=== PATIENT | male | born 1980 | race Caucasian/White ===

== ENCOUNTER 2019-07-16 13:07 | Observation (INO) | payer OTHER, SELFPAY ==
[2019-07-16 13:08] VITALS: BMI 56.1
--- NOTE | 2019-07-16 13:15 | W.ED.CHESTPA ---
HPI - Chest Pain General: Chief Complaint: Chest Pain Stated Complaint: CP, SOB, LEG PAIN Time Seen by Provider: 07/16/19 13:11 History of Present Illness: HPI narrative: 38-year-old male presents with complaint of chest pain. Complains of a generalized chest pain he has had this for several days up to a week he states is been continuous he denies any cough or productive cough he denies any fever. He complains of generalized aches and pains throughout his body and increased urination especially during the day. He does admit to having a history of sleep apnea but denies any known history of diabetes mellitus he does not smoke. He has not noticed anything that seems to exacerbate or relieve his chest pain symptoms. He initially alluded to having some kidney pain but when pressed on the matter he could not identify particular area that hurt just that he hurts all over and urinates a lot. Patient was admitted for an end STEMI November 04, 2015 however at that time he was found to have a hypertensive urgency and had a bump in his troponin he had some left ventricular hypertrophy he had a coronary angiogram that essentially showed some luminal irregularities but no significant stenosis there was no intervention done at that time. Associated symptoms: Deny abdominal pain, dyspnea, fever(s), nausea or vomiting Review of Systems Const: Denies: fever, chills, body aches, change in appetite, fatigue or malaise ENMT: Denies: throat pain, ear pain, nasal discharge or nasal congestion Card: Denies: chest pain, edema, shortness of breath on exertion or shortness of breath when lying down Resp: Denies: shortness of breath, productive cough or non-productive cough GI: Denies: abdominal pain, nausea, vomiting, vomiting blood, coffee grounds in vomit, diarrhea, constipation, bloating, blood in stool or black tarry stool : Denies: flank pain, painful urination, urinary frequency or urinary urgency Skin/Breast: Denies: rash or itching PFSH ED PFSH: Medical History (Updated 07/18/19 @ 10:07 by Josue Gresham DO) Diastolic dysfunction without heart failure GERD (gastroesophageal reflux disease) Hypertension Significant improvement with restart of his chronic medications Obesity Obstructive sleep apnea Refuses CPAP Surgical History (Updated 07/16/19 @ 17:43 by Daren Carlisle MD) History of cholecystectomy History of coronary angiogram Only mild luminal irregularities found, otherwise normal, October 2015 Family History (Updated 07/16/19 @ 17:44 by Daren Carlisle MD) Other Hypertension Social History (Updated 07/16/19 @ 17:43 by Daren Carlisle MD) Smoking and tobacco status: former smoker Alcohol intake: never Physical Exam Const: COMMON NORMALS: no apparent distress GENERAL APPEARANCE: cooperative and comfortable ORIENTATION/CONSCIOUSNESS: Yes awake, Yes oriented to person, Yes oriented to place and Yes oriented to time HENMT: COMMON NORMALS: normocephalic, head/scalp atraumatic, hearing grossly normal bilaterally, external ears normal, EAC's normal, TM's normal bilaterally, nasal mucous membranes and turbinates normal, moist oral mucous membranes and oropharynx normal HEAD & SCALP: normocephalic and atraumatic NOSE: nasal mucous membranes and turbinates normal EXTERNAL EAR: Yes external ears normal EXTERNAL AUDITORY CANAL: EAC's normal TYMPANIC MEMBRANE: TM's normal bilaterally Eye: COMMON NORMALS: PERRL, EOMs intact bilaterally, conjunctivae normal and no scleral icterus CONJUNCTIVA: Yes conjunctivae normal PUPIL: Yes PERRL Neck/C-Spine: COMMON NORMALS: full ROM, no lymphadenopathy, supple and no JVD Lymph: LYMPHATIC: no lymphadenopathy noted and no lymphedema noted Resp: COMMON NORMALS: normal respiratory effort, no retractions, no use of accessory muscles and clear to auscultation bilaterally AUSCULTATION: clear to auscultation bilaterally Cardio: COMMON NORMALS: no JVD, regular rate, regular rhythm and no murmurs RATE: regular rate RHYTHM: regular rhythm GI: COMMON NORMALS: soft to palpation and no hepatosplenomegaly AUSCULTATION: Yes normoactive bowel sounds PALPATION: Yes soft, No tender, No guarding and Yes no hepatosplenomegaly Extremity: COMMON NORMALS: normal to inspection, normal capillary refill, no clubbing, cyanosis or edema, no calf tenderness and no pedal edema Neuro: SENSORIUM/ORIENTATION: Yes oriented to person, Yes oriented to place and Yes oriented to time Skin: COMMON NORMALS: no rashes or lesions noted GENERAL SKIN EXAM: no rashes or lesions noted Course Vital Signs: Vital signs: Vital Signs Temperature 98.3 F 07/17/19 11:40 Pulse Rate 75 07/17/19 11:40 Respiratory Rate 20 H 04/08/20 16:00 Blood Pressure 171/99 07/17/19 11:40 Pulse Oximetry 95 07/17/19 11:40 MDM - Chest Pain MDM Narrative: Medical decision making narrative: Reviewed findings with the patient. Discussed Dr. Barahona given the for will have to go ahead and place him on observation for further evaluation and possible stress testing. Lab Data: Labs: Lab Results 07/16/19 07/16/19 07/16/19 Range/Units 13:45 13:45 13:45 WBC 10.3 H (4.0-10.0) 10^3/ uL RBC 5.86 H (4.1-5.3) 10^6/u L Hgb 16.6 (11.7-16.6) g/dL Hct 51.1 (42.0-52.0) % MCV 87.2 (80-94) fL MCH 28.3 (28.0-34.0) pg MCHC 32.5 (30.0-36.0) g/dL RDW 14.4 (12.1-15.1) % Plt Count 249 (130-400) 10^3/c mm MPV 12.1 H (7.4-10.4) fL Neut % (Auto) 73.1 % Lymph % (Auto) 17.3 % [place] % (Auto) 7.1 % Eos % (Auto) 1.5 % Baso % (Auto) 0.5 % Neut # (Auto) 7.5 (1.8-7.7) 10^3/u L Lymph # (Auto) 1.8 (0.8-4.8) 10^3/u L [place] # (Auto) 0.7 (0.2-0.9) 10^3/u L Eos # (Auto) 0.2 (0.0-0.8) 10^3/u L Baso # (Auto) 0.1 (0.0-0.1) 10^3/u L Nucleated RBC % (a uto) 0 % Nucleated RBCs # 0.0 /100WBC D-Dimer (0-0.59) ug/mIFE U Sodium 136 (136-145) mmol/L Potassium 4.3 (3.5-5.1) mmol/L Chloride 97 L (98-107) mmol/L Carbon Dioxide 27 (22-29) mmol/L Anion Gap 16.3 (5-19) BUN 18 (6-20) mg/dL Creatinine 1.3 H (0.7-1.2) mg/dL GFR Calculation 61.1 L (90-130) mL/min Glucose 102 (65-115) mg/dL Calculated Osmolal ity 279 L (285-295) mOsm/k g Calcium 9.4 (8.5-10.5) mg/dL Total Bilirubin 0.7 (0.15-1.2) mg/dL AST 23 (0-40) U/L ALT 18 (0-41) U/L Alkaline Phosphata se 54 (40-130) IU/L Troponin T Baselin e 56 H (0-15) ng/mL Troponin T 120 Min [place] (0-15) ng/mL Delta Troponin T (0-10) ABS# Total Protein 7.2 (6.6-8.7) g/dL Albumin 4.0 (3.5-5.2) g/dL Globulin 3.2 (1.3-4.6) g/dL Lipase 27 (13-60) U/L TSH 1.83 (0.27-4.20) uIU/ mL 07/16/19 07/16/19 Range/Units 13:45 15:46 WBC (4.0-10.0) 10^3/ uL RBC (4.1-5.3) 10^6/u L Hgb (11.7-16.6) g/dL Hct (42.0-52.0) % MCV (80-94) fL MCH (28.0-34.0) pg MCHC (30.0-36.0) g/dL RDW (12.1-15.1) % Plt Count (130-400) 10^3/c mm MPV (7.4-10.4) fL Neut % (Auto) % Lymph % (Auto) % [place] % (Auto) % Eos % (Auto) % Baso % (Auto) % Neut # (Auto) (1.8-7.7) 10^3/u L Lymph # (Auto) (0.8-4.8) 10^3/u L [place] # (Auto) (0.2-0.9) 10^3/u L Eos # (Auto) (0.0-0.8) 10^3/u L Baso # (Auto) (0.0-0.1) 10^3/u L Nucleated RBC % (a uto) % Nucleated RBCs # /100WBC D-Dimer 0.58 (0-0.59) ug/mIFE U Sodium (136-145) mmol/L Potassium (3.5-5.1) mmol/L Chloride (98-107) mmol/L Carbon Dioxide (22-29) mmol/L Anion Gap (5-19) BUN (6-20) mg/dL Creatinine (0.7-1.2) mg/dL GFR Calculation (90-130) mL/min Glucose (65-115) mg/dL Calculated Osmolal ity (285-295) mOsm/k g Calcium (8.5-10.5) mg/dL Total Bilirubin (0.15-1.2) mg/dL AST (0-40) U/L ALT (0-41) U/L Alkaline Phosphata se (40-130) IU/L Troponin T Baselin e (0-15) ng/mL Troponin T 120 Min [place] 60.21 H (0-15) ng/mL Delta Troponin T 4.21 (0-10) ABS# Total Protein (6.6-8.7) g/dL Albumin (3.5-5.2) g/dL Globulin (1.3-4.6) g/dL Lipase (13-60) U/L TSH (0.27-4.20) uIU/ mL Discharge Plan Discharge Patient Disposition: Admitted As Inpatient Admit Provider: Daren Carlisle Clinical Impression: Chest pain, Hypertension, Elevated troponin, Lower extremity edema Condition: Stable Discharge Orders: Discharge Order (Routine); Ordered 07/17/19 Ordered By: Daren Carlisle Discharge Diet: Cardiac Discharge Activity: Increase activity as tolerated Interventions: ED Discharge Assessment Last Done: 07/16/19 20:01 Discharge Date/Time: 07/16/19 20:12 Coding Level of Care Code 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
[2019-07-16 13:16] VITALS: BP 201/146; PULSE 88; RESP 18; TEMP 37.2; O2SAT 97
--- NOTE | 2019-07-16 13:16 | ECG_ITS ---
Measurements Intervals [place] Rate: 84 P: 28 IA: 163 QRS: -1 QRSD: 88 T: 181 QT: 408 QTc: 483 SINUS RHYTHM LEFT VENTRICULAR HYPERTROPHY AND ST-T CHANGE [VOLTAGE CRITERIA PLUS ST/T ABN ABNORMALITY] INTERPRETATION BASED ON A DEFAULT AGE OF 40 YEARS Compared to ECG 01/21/2017 06:13:00 Left ventricular hypertrophy now present ST (T wave) deviation still present Electronically Signed On 07-17-2019 17:58:32 CDT by Gali Solorio M.D. [id number]
--- NOTE | 2019-07-16 13:16 | XR_ITS ---
WS: [id number] CHEST XRAY TECHNIQUE: Portable chest. CLINICAL INFORMATION: dyspnea/cough COMPARISON: None. FINDINGS: Heart: Cardiomegaly. Lungs: No acute pulmonary infiltrates. No focal pneumonia. Bones: Normal visualized bony structures. XR/XR chest 1V portable [id number] IMPRESSION: Cardiomegaly. No acute pulmonary infiltrates.
--- NOTE | 2019-07-16 13:19 | PC.NURSE ---
NOT TAKEN BLOOD PRESSURE MEDICATION FOR ABOUT MONTH UNABLE TO AFFORD IT
[2019-07-16 14:00] LABS: Basophils # 0.1 10^3/uL (0.0-0.1); Basophils % 0.5 %; Eosinophils # 0.2 10^3/uL (0.0-0.8); Eosinophils % 1.5 %; Hematocrit 51.1 % (42.0-52.0); Hemoglobin 16.6 g/dL (11.7-16.6); Lymphocytes # 1.8 10^3/uL (0.8-4.8); Lymphocytes % 17.3 %; Mean Corpuscular HGB Conc 32.5 g/dL (30.0-36.0); Mean Corpuscular Hemoglobin 28.3 pg (28.0-34.0); Mean Corpuscular Volume 87.2 fL (80-94); Mean Platelet Volume 12.1 fL (7.4-10.4); Monocytes # 0.7 10^3/uL (0.2-0.9); Monocytes % 7.1 %; Neutrophils # 7.5 10^3/uL (1.8-7.7); Neutrophils % 73.1 %; Nucleated Red Blood Cells % 0 %; Platelet Count 249 10^3/cmm (130-400); Red Blood Count 5.86 10^6/uL (4.1-5.3); Red Cell Distribution Width 14.4 % (12.1-15.1); White Blood Count 10.3 10^3/uL (4.0-10.0)
[2019-07-16 14:12] LABS: Alanine Aminotransferase 18 U/L (0-41); Alkaline Phosphatase 54 IU/L (40-130); Anion Gap 16.3 (5-19); Aspartate Amino Transferase 23 U/L (0-40); Blood Urea Nitrogen 18 mg/dL (6-20); Calcium 9.4 mg/dL (8.5-10.5); Carbon Dioxide 27 mmol/L (22-29); Chloride 97 mmol/L (98-107); Globulin 3.2 g/dL (1.3-4.6); Glomerular Filtration Rate 61.1 mL/min (90-130); Glucose 102 mg/dL (65-115); Lipase 27 U/L (13-60); Osmolality Calculated 279 mOsm/kg (285-295); Potassium 4.3 mmol/L (3.5-5.1); Sodium 136 mmol/L (136-145); Total Bilirubin 0.7 mg/dL (0.15-1.2); Total Protein 7.2 g/dL (6.6-8.7)
[2019-07-16 14:13] LABS: Troponin(5th) Baseline 56 ng/mL (0-15)
--- NOTE | 2019-07-16 15:13 | PC.NURSE ---
Patient resting at this time. No needs voiced
--- NOTE | 2019-07-16 15:16 | ECG_ITS ---
Measurements Intervals [place] Rate: 73 P: 22 GA: 168 QRS: -18 QRSD: 86 T: 163 QT: 426 QTc: 472 SINUS RHYTHM LEFT VENTRICULAR HYPERTROPHY AND ST-T CHANGE [VOLTAGE CRITERIA PLUS ST/T AB ABNORMALITY] Compared to ECG 01/21/2017 06:13:00 Left ventricular hypertrophy now present ST (T wave) deviation still present Electronically Signed On 07-17-2019 18:05:41 CDT by Gali Solorio M.D. [email or web address]
[2019-07-16 16:36] LABS: Troponin 5 2HR 60.21 ng/mL (0-15); Troponin 5 2HR Delta 4.21 ABS# (0-10)
[2019-07-16] MEDS: enoxaparin 80 mg/0.8 mL Syringe 150 MG SUBCUT (17:07)
[2019-07-16 17:09] VITALS: RESP 15
[2019-07-16 17:09] LABS: D Dimer 0.58 ug/mIFEU (0-0.59)
[2019-07-16] MEDS: morphine 4 mg/mL SDV 1 mL 2 MG IVP (17:09)
[2019-07-16] MEDS: nitroglycerin 1 gm/inch oint Pkt 1.5 INCH TOPICAL (17:09)
--- NOTE | 2019-07-16 17:36 | P.HP_ITS ---
Providers/Chief Complaint Primary Care Provider: Estelle Kendrick DO Chief Complaint: CP, SOB, LEG PAIN History of Present Illness Eli Michael is a 38 year old male who presents to the hospital with complaints of chest discomfort. He reports it is been going on 2 weeks, off and on but some days it will last all day. He states it is sharp and usually in his right chest. He denies any pleuritic component to it. He has been coughing in the last several days. He denies any fever. He admits to being a little short of breath. He reports the cough is nonproductive. He denies any ill contacts at home and has had no recent travel. He reports no vomiting or diarrhea. He relates his blood pressure is been high for quite some time but higher since he ran out of meds medicines 1 month ago. He relates that he lost his job and did not make it to the physician to get these refilled. He reports some leg swelling since that time that has gradually been increasing. He believes the leg swelling may have been even going on prior to this and it makes his legs hurt a little bit. He reports no hemoptysis. He reports he will occasionally have a stool with a slight amount of blood. Review of Systems General: Reports: 10 or more systems reviewed and unremarkable except in HPI and below Const: Denies: fever or chills Eyes: Denies: blurry vision ENMT: Denies: throat pain Card: Reports: chest pain Resp: Reports: shortness of breath and non-productive cough GI: Denies: abdominal pain : Denies: flank pain Musc: Denies: neck pain Skin/Breast: Denies: rash Neuro: Denies: headache Psych: Denies: anxiety or depression Endo: Denies: excessive urination Jomar/Lymph: Denies: easy bruising All/Imm: Denies: hives Medications/Allergies Home Medications Medication Instructions Recorded Confirmed Last Taken Type furosemide 40 mg PO DAILY 07/16/19 07/16/19 Unknown History hydrochlorothiazide 25 mg PO DAILY 07/16/19 07/16/19 Unknown History hydrocodone-acetaminophen 1 tab PO DAILY 07/16/19 07/16/19 Unknown History lisinopril See Rx Instructions .ROUTE .COMPLEX 07/16/19 07/16/19 Unknown History potassium chloride 20 meq PO BID 07/16/19 07/16/19 Unknown History Allergies Allergy/AdvReac Type Severity Reaction Status Date / Time aspirin Allergy Unknown Verified 07/16/19 13:15 PFSH Acute PFSH: Medical History (Updated 07/16/19 @ 17:50 by Daren Carlisle MD) Diastolic dysfunction without heart failure GERD (gastroesophageal reflux disease) Hypertension Obesity Obstructive sleep apnea Refuses CPAP Surgical History (Updated 07/16/19 @ 17:43 by Daren Carlisle MD) History of cholecystectomy History of coronary angiogram Only mild luminal irregularities found, otherwise normal, October 2015 Family History (Updated 07/16/19 @ 17:43 by Daren Carlisle MD) Other Hypertension Social History (Updated 07/16/19 @ 17:43 by Daren Carlisle MD) Smoking and tobacco status: former smoker Alcohol intake: never Substance/Drug Use: never Vitals/I&O/Wt Last Vital Signs Temp 99.0 F 07/16/19 13:16 Pulse 88 07/16/19 13:16 Resp 15 07/16/19 17:09 BP 201/146 07/16/19 13:16 Pulse Ox 97 07/16/19 13:16 Weight last 48 hrs Weight 172.365 kg Physical Exam Narrative: EXAM NARRATIVE: General exam demonstrates an obese white male, with mild tachypnea. Occasional cough. He has a mask on HEENT: Pupils equally round. Oropharynx clear. Neck is supple no lymphadenopathy or thyromegaly, obese Cardiovascular heart sounds distant. No murmur Lungs clear bilaterally. Lung sounds distant Abdomen is soft obese nontender with positive bowel sounds was deferred Extremities 1+ bilateral edema. No cyanosis or clubbing Skin no rash Neuro no focal deficits Data : 07/16/19 13:45 07/16/19 13:45 Other data: Troponin elevated at 56, with 120-minute level of 60 D-dimer normal at 0.58 Liver function tests normal Chest x-ray with cardiomegaly, no infiltrates Previous echocardiogram September 2016 demonstrated 3/4 diastolic dysfunction, LVH, EF 55% EKG demonstrates LVH pattern, borderline left axis deviation. This is unchanged from previous EKGs A&P Assessment and plan (1) Chest discomfort: This is very atypical. It has been occurring for 2 weeks and can last days at a time. Troponin is elevated, but appears to be chronically secondary to his LVH/diastolic dysfunction. I believe his chest discomfort at this time is secondary to his acute diastolic heart failure, marked hypertension. Check echocardiogram D-dimer is noted to be negative Serial troponins Treatment of hypertension as below. At this point no nuclear stress test is planned unless other concerns arise. Telemetry Check TSH Status: Acute (2) Elevated troponin: See above. Will trend Status: Acute (3) Acute diastolic heart failure: Lasix 40 mg IV x1 Check echocardiogram Reinstitute many of his blood pressure medications Status: Acute (4) Cough: Temperature is slightly elevated. He has a nonproductive cough and shortness of breath. Chest x-ray is difficult to interpret secondary to obesity. We have Covid 19 in the community. Although still low likelihood as he is being observed in the hospital I will keep him on covert precautions, Covid 19 test ordered. Status: Acute (5) Lower extremity edema: Likely secondary to heart failure. Check venous duplex Status: Acute (6) Hypertension: Marked hypertension, with concerns of possible hypertensive urgency on arrival to ER. Currently denies any chest discomfort and reports no current shortness of breath. Nitroglycerin ointment Lisinopril 10 mg daily first dose now Initiate metoprolol 25 mg twice daily Lasix 40 mg IV x1 Hydralazine as needed Status: Acute Additional A&P Information Obstructive sleep apnea, refuses CPAP/BiPAP GERD. Will institute Protonix Morbidly obese, counseled Lovenox for DVT prophylaxis Full code Attestations Medical Necessity Statement*: Will need less than 2 midnight stay, for evaluation of marked hypertension and treatment thereof. Time Spent in Patient Care: Greater than 35 minutes Coding Level of Care Code Acute Farm Management Agent for oRxanna Pickett Diagnoses Chest discomfort R07.89 Elevated troponin R79.89 Acute diastolic heart failure I50.31 Cough R05 Lower extremity edema R60.0 Hypertension I10
--- NOTE | 2019-07-16 18:29 | PC.NURSE ---
Called to give report. Was told to wait 15-20 minutes so the nurse coming on could take report.
[2019-07-16 19:06] LABS: Influenza A by IFA Negative (Negative); Influenza B by IFA Negative (Negative)
--- NOTE | 2019-07-16 19:16 | ECG_ITS ---
Measurements Intervals [place] Rate: 72 P: 31 [place]: 177 QRS: 13 QRSD: 82 T: 168 QT: 421 QTc: 461 SINUS RHYTHM WITH OCCASIONAL VENTRICULAR PREMATURE COMPLEXES LEFT VENTRICULAR HYPERTROPHY AND ST-T CHANGE [VOLTAGE CRITERIA PLUS ST/T ABNORMALITY] Compared to ECG 01/21/2017 06:13:00 Ventricular premature complex(es) now present Left ventricular hypertrophy now present ST (T wave) deviation still present Electronically Signed On 07-17-2019 18:09:53 CDT by Gali Solorio M.D. [email or web address]
[2019-07-16 20:01] VITALS: BP 182/119; PULSE 79; RESP 20; O2SAT 98
[2019-07-16 20:21] LABS: Troponin 5 6HR 60.62 ng/mL (0-15); Troponin 5 6HR Delta 4.62 ng/L (0-12)
[2019-07-16] MEDS: metoprolol tartrate 25 mg Tablet PO (20:49)
[2019-07-16] MEDS: pantoprazole DR 40 mg Tablet PO (20:49)
[2019-07-16] MEDS: FUROsemide 10 mg/mL SDV 4mL 40 MG IVP (20:49)
[2019-07-16] MEDS: nitroglycerin 1 gm/inch oint Pkt 1 INCH TOPICAL (20:50)
[2019-07-16] MEDS: acetaminophen 325 mg Tablet 650 MG PO (20:58)
[2019-07-16 21:11] LABS: Thyroid Stimulating Hormone 1.83 uIU/mL (0.27-4.20)
[2019-07-16] MEDS: hyDRALAzine 20 mg/mL INJ 1 mL 10 MG IVP (21:16)
[2019-07-16 21:20] VITALS: BMI 55.1
[2019-07-16 22:15] VITALS: BP 160/90
[2019-07-16 23:48] LABS: Add On to Lab Order(s) Added
[2019-07-17] VITALS: BP 167/70; PULSE 74; RESP 20; TEMP 36.8; O2SAT 91
[2019-07-17] MEDS: acetaminophen 325 mg Tablet 650 MG PO (03:15)
[2019-07-17] MEDS: nitroglycerin 1 gm/inch oint Pkt 1 INCH TOPICAL (03:15)
[2019-07-17 04:00] VITALS: BP 131/74; PULSE 70; RESP 20; TEMP 36.7; O2SAT 90
[2019-07-17 04:09] LABS: Basophils % 0.3 %; Eosinophils # 0.1 10^3/uL (0.0-0.8); Hematocrit 47.7 % (42.0-52.0); Hemoglobin 15.5 g/dL (11.7-16.6); Lymphocytes # 1.6 10^3/uL (0.8-4.8); Mean Corpuscular HGB Conc 32.5 g/dL (30.0-36.0); Mean Corpuscular Hemoglobin 28.7 pg (28.0-34.0); Mean Corpuscular Volume 88.2 fL (80-94); Mean Platelet Volume 11.9 fL (7.4-10.4); Monocytes # 1.1 10^3/uL (0.2-0.9); Monocytes % 8.2 %; Neutrophils # 10.3 10^3/uL (1.8-7.7); Neutrophils % 78.1 %; Nucleated Red Blood Cells % 0 %; Platelet Count 266 10^3/cmm (130-400); Red Blood Count 5.41 10^6/uL (4.1-5.3); Red Cell Distribution Width 14.7 % (12.1-15.1); White Blood Count 13.2 10^3/uL (4.0-10.0)
[2019-07-17 04:24] LABS: Anion Gap 13.9 (5-19); Blood Urea Nitrogen 19 mg/dL (6-20); Calcium 9.5 mg/dL (8.5-10.5); Carbon Dioxide 29 mmol/L (22-29); Chloride 99 mmol/L (98-107); Glomerular Filtration Rate 61.1 mL/min (90-130); Glucose 126 mg/dL (65-115); Osmolality Calculated 284 mOsm/kg (285-295); Potassium 3.9 mmol/L (3.5-5.1); Sodium 138 mmol/L (136-145)
--- NOTE | 2019-07-17 07:00 | USCV_ITS ---
Eil Michael Age: 38 Gender: M : 1980 Exam Date: 07/17/2019 07:12 Ordering Phys: Daren Carlisle MD Technologist: Vivi Mohr Exam Location: [facility] – [place] Indication: PROCEDURES: Venous duplex imaging was performed in bilateral lower extremities. The following venous structures were evaluated: common femoral vein, profunda vein, proximal portion of the greater saphenous vein, superficial femoral vein, and the popliteal vein. In addition, the posterior tibial and peroneal trunk were evaluated. Serial compression, augmentation maneuvers, and spectral Doppler flow evaluation were performed. FINDINGS: Normal 2-D Doppler and augmentation and compressibility throughout the lower extremity venous structures. Additional imaging through the proximal calf veins also reveals no thrombus. Limited evaluation of the greater saphenous vein is patent with no thrombus.. CONCLUSIONS No evidence of right lower extremity DVT. No evidence of left lower extremity DVT. Ryan Wellington MD (Electronically Signed) Final Date: 18 July 2019 13:13 S
--- NOTE | 2019-07-17 07:00 | USCV_ITS ---
Eli Michael Age: 38 Gender: M : 1980 Exam Date: 07/17/2019 07:03 Ordering Phys: Daren Carlisle MD Technologist: Vivi Mohr Exam Location: [facility] – [place] Indication: BP: / HR: 70 Rhythm: Sinus Technical Quality: Poor because of body habitus MEASUREMENTS (Male / Female) Normal Values 2D ECHO LVOT Diameter 2.1 cm LV Ejection Fraction MOD 2C 10.4 % LV Ejection Fraction 2C AL 8.3 % LA Width 3.3 cm LA Height 3.8 cm RA Width 2.9 cm RA Height 3.8 cm DOPPLER AV Peak Velocity 194.0 cm/s LVOT Peak Velocity 102.0 cm/s AV Area Cont Eq vti 1.8 cm squared AV Area Cont Eq pk 1.8 cm squared MV Area PHT 4.0 cm squared Mitral E to A Ratio 1.1 MV E' Velocity 7.0 cm/s Mitral E to MV E' Ratio 9.4 Mitral E to LV E' Lateral Ratio 9.1 Mitral E to LV E' Septal Ratio 9.8 FINDINGS Left Ventricle The study is poor and limited due to the patient's body habitus. The ventricle is upper limit of normal in size. The left ventricular function is probably lower limit of normal. Wall motion disturbances and diastolic function cannot be determined. Right Ventricle Poorly seen Right Atrium The right atrium is normal in size. Left Atrium Poorly seen Mitral Valve Mitral valve not well visualized. Aortic Valve Aortic valve not well visualized. Tricuspid Valve Tricuspid valve not well visualized. Pulmonic Valve Pulmonic valve not well visualized. Pericardium Normal pericardium without effusion. Aorta Aorta not well visualized. CONCLUSIONS The study is poor and limited due to the patient's body habitus. The ventricle is upper limit of normal in size. The left ventricular function is probably lower limit of normal. Wall motion disturbances and diastolic function cannot be determined. Technically limited study. Dr. Sukhi Lovell MD (Electronically Signed) Final Date: 17 July 2019 12:47 S
[2019-07-17 08:00] VITALS: BP 171/99; PULSE 75; RESP 18; TEMP 36.8; O2SAT 95
[2019-07-17 10:00] VITALS: BMI 54.8
[2019-07-17] MEDS: FUROsemide 40 mg Tablet PO (10:25)
[2019-07-17] MEDS: pantoprazole DR 40 mg Tablet PO (10:27)
[2019-07-17] MEDS: lisinopril 10 mg Tablet PO (10:27)
[2019-07-17] MEDS: metoprolol tartrate 25 mg Tablet PO (10:27)
[2019-07-17] MEDS: isosorbide mononitrate ER 30 mg Tablet PO (10:28)
--- NOTE | 2019-07-17 11:11 | P.DS_ITS ---
Discharge Providers Date of Admission: 07/16/19 17:16 Date of Discharge: July 17, 2019 Attending Provider at Admission: Daren Carlisle MD Attending Provider at Discharge: Daren Carlisle MD Primary Care Provider: Estelle Kendrick DO Diagnoses at Discharge Discharge Diagnosis (1) Chest discomfort: Status: Acute Problem details: Resolved (2) Elevated troponin: Status: Acute Problem details: Chronically elevated (3) Acute diastolic heart failure: Status: Acute Problem details: Compensated (4) Cough: Status: Acute Problem details: Not significant today (5) Lower extremity edema: Status: Acute Problem details: Improved (6) Hypertension: Status: Acute Problem details: Significant improvement with restart of his chronic medications Reason for Visit Reason for Visit: Reason For Visit: CP, SOB, LEG PAIN Hospital Course Hospital Course: Eli presented to the department with chest discomfort. It been going on 2 weeks, sharp and intermittent but can last for days at a time. Denied any pleuritic quality to it. Has an occasional cough. Reported he ran out of his medicines a month ago for high blood pressure. He has known severe LVH. Troponin was found to be elevated in the emergency department. No significant delta was noted. Chest x-ray showed no infiltrate. D-dimer was negative. He was admitted to the hospital, diuresed, started on his home medications with the addition of nitrates and monitoring closely. While in the hospital he had no recurrent chest discomfort. He required no oxygen. He did not run a fever. White blood cell count was noted to be slightly elevated. Influenza tests were done, and Covid 19 done which was pending at time of discharge. Overall, it was thought his markedly elevated blood pressure on admission was secondary to him not taking his medicines as well as decompensation of diastolic heart failure causing some chest discomfort. He wi ll follow-up with cardiology, primary care provider. Covid 19 results will be called to him. He was told to continue self quarantine at home with mask. I discussed with him in the hospital the possibility of doing another sleep study, consideration of CPAP but he refused. Physical Exam Narrative: EXAM NARRATIVE: General exam no apparent distress Cardiovascular regular rate and rhythm without murmur Lungs clear Abdomen is soft obese nontender Extremities trace edema Discharge Data Data Completed and Pending: Completed Studies During Hospitalization Category Date Time Status XR chest 1V iban ble [id number] Stat Exams 07/16/19 13:16 Completed Pending at discharge Category Date Time Status CV echo complete* [id number] Routine Ultrasound 07/17/19 07:00 [place] [id number] Routin e Ultrasound 07/17/19 07:00 Taken Labs from last 24 hours 07/17/19 07/17/19 07/16/19 03:38 03:38 19:55 WBC 13.2 H RBC 5.41 H Hgb 15.5 Hct 47.7 MCV 88.2 MCH 28.7 MCHC 32.5 RDW 14.7 Plt Count 266 MPV 11.9 H Neut % (Auto) 78.1 Lymph % (Auto) 12.0 Cameron % (Auto) 8.2 Eos % (Auto) 1.0 Baso % (Auto) 0.3 Neut # (Auto) 10.3 H Lymph # (Auto) 1.6 Cameron # (Auto) 1.1 H Eos # (Auto) 0.1 Baso # (Auto) 0.0 Nucleated RBC % (a uto) 0 Nucleated RBCs # 0.0 D-Dimer Sodium 138 Potassium 3.9 Chloride 99 Carbon Dioxide 29 Anion Gap 13.9 BUN 19 Creatinine 1.3 H GFR Calculation 61.1 L Glucose 126 H Calculated Osmolal ity 284 L Calcium 9.5 Total Bilirubin AST ALT Alkaline Phosphata se Troponin I 6 Hour 60.62 H Troponin I Hi Sens Del 4.62 Troponin T Baselin e Troponin T 120 Min ho-chunk Delta Troponin T Total Protein Albumin Globulin Lipase TSH Influenza Type A A g Influenza Type B A g 07/16/19 07/16/19 07/16/19 17:38 15:46 13:45 WBC RBC Hgb Hct MCV MCH MCHC RDW Plt Count MPV Neut % (Auto) Lymph % (Auto) Cameron % (Auto) Eos % (Auto) Baso % (Auto) Neut # (Auto) Lymph # (Auto) Cameron # (Auto) Eos # (Auto) Baso # (Auto) Nucleated RBC % (a uto) Nucleated RBCs # D-Dimer 0.58 Sodium Potassium Chloride Carbon Dioxide Anion Gap BUN Creatinine GFR Calculation Glucose Calculated Osmolal ity Calcium Total Bilirubin AST ALT Alkaline Phosphata se Troponin I 6 Hour Troponin I Hi Sens Del Troponin T Baselin e Troponin T 120 Min ho-chunk 60.21 H Delta Troponin T 4.21 Total Protein Albumin Globulin Lipase TSH Influenza Type A A g Negative Influenza Type B A g Negative 07/16/19 07/16/19 07/16/19 13:45 13:45 13:45 WBC 10.3 H RBC 5.86 H Hgb 16.6 Hct 51.1 MCV 87.2 MCH 28.3 MCHC 32.5 RDW 14.4 Plt Count 249 MPV 12.1 H Neut % (Auto) 73.1 Lymph % (Auto) 17.3 Cameron % (Auto) 7.1 Eos % (Auto) 1.5 Baso % (Auto) 0.5 Neut # (Auto) 7.5 Lymph # (Auto) 1.8 Cameron # (Auto) 0.7 Eos # (Auto) 0.2 Baso # (Auto) 0.1 Nucleated RBC % (a uto) 0 Nucleated RBCs # 0.0 D-Dimer Sodium 136 Potassium 4.3 Chloride 97 L Carbon Dioxide 27 Anion Gap 16.3 BUN 18 Creatinine 1.3 H GFR Calculation 61.1 L Glucose 102 Calculated Osmolal ity 279 L Calcium 9.4 Total Bilirubin 0.7 AST 23 ALT 18 Alkaline Phosphata se 54 Troponin I 6 Hour Troponin I Hi Sens Del Troponin T Baselin e 56 H Troponin T 120 Min ho-chunk Delta Troponin T Total Protein 7.2 Albumin 4.0 Globulin 3.2 Lipase 27 TSH 1.83 Influenza Type A A g Influenza Type B A g Vitals: Last Vital Signs Temp 98.3 F 07/17/19 08:00 Pulse 75 07/17/19 08:00 Resp 18 07/17/19 08:00 BP 171/99 07/17/19 08:00 Pulse Ox 95 07/17/19 08:00 Discharge Plan Discharge Patient Disposition: Home, Self-Care Condition: Stable Prescriptions: New metoprolol tartrate 25 mg Tablet 25 mg PO BID Qty: 60 RF: 0 isosorbide mononitrate 30 mg Tablet Extended Release 24 Hr 30 mg PO DAILY Qty: 30 RF: 0 pantoprazole [Protonix] 40 mg tablet,delayed release (DR/EC) 40 mg PO DAILY Qty: 30 RF: 0 potassium chloride 20 mEq tablet extended release 20 meq PO DAILY Qty: 30 RF: 0 lisinopril 10 mg Tablet 10 mg PO DAILY Qty: 30 RF: 0 Continued furosemide 40 mg tablet 40 mg PO DAILY Qty: 30 RF: 0 hydrochlorothiazide 25 mg tablet 25 mg PO DAILY Qty: 30 RF: 0 Discontinued hydrocodone-acetaminophen 5-325 mg tablet 1 tab PO DAILY RF: 0 lisinopril 20 mg tablet See Rx Instructions .ROUTE .COMPLEX RF: 0 potassium chloride 20 mEq tablet,ER particles/crystals 20 meq PO BID RF: 0 Referrals: Estelle Kendrick DO [Primary Care Provider] - 4-7 days Joanna Pickett MD [Physician] - 2 weeks Discharge Diet: Cardiac Discharge Activity: Increase activity as tolerated Activity Restrictions/Additional Instructions: Take all medicine as prescribed Keep follow-up with primary care provider, cardiology Note that your Covid 19 test that was done at the emergency department was pending at time of discharge and you will need to continue quarantine at home, with mask. You will be called with your result. Discharge Attestations Time Spent in Discharge Care*: greater than 30 min Quality Metrics Clinical Quality Measures During this hospital stay, did patient experience: None Coding Level of Care Code Acute Etcher Apprentice for Chg Fwd Diagnoses Chest discomfort R07.89 Elevated troponin R79.89 Acute diastolic heart failure I50.31 Cough R05 Lower extremity edema R60.0 Hypertension I10
[2019-07-17 11:40] VITALS: BP 171/99; PULSE 75; RESP 18; TEMP 36.8; O2SAT 95
[2019-07-17 12:00] VITALS: RESP 20
--- NOTE | 2019-07-17 13:34 | PC.NURSE ---
patients iv was removed intact, covered with 2x2 and coban. patient tolerated well. patient educated on chf, chest pain, edema, htn, new medications, activity, daily weighing, lifestyle changes, what to do if symptoms get worse, also he was given the chf stoplight. patient verbally acknowledged all teachings. no questions asked. Patient awaiting ride.
[2019-07-17 16:00] VITALS: RESP 20
== END 2019-07-17 17:44 | disposition home or self-care (01) ==
LOC: ER 14:40 → MEDSURG 18:25
PROVIDERS: Admitting Provider Internal Medicine; Emergency Provider Family Medicine; Family Provider Family Medicine; PCP Family Medicine; Visit Provider Internal Medicine
DX: R07.89 Other chest pain (principal); R79.89 Other specified abnormal findings of blood chemistry; I11.0 Hypertensive heart disease with heart failure; I50.31 Acute diastolic (congestive) heart failure; Z11.59 Encounter for screening for other viral diseases; R05 Cough; R60.0 Localized edema; G47.33 Obstructive sleep apnea (adult) (pediatric); K21.9 Gastro-esophageal reflux disease without esophagitis; E66.01 Morbid (severe) obesity due to excess calories; Z68.43 Body mass index [BMI] 50.0-59.9, adult; Z82.49 Family history of ischemic heart disease and other diseases of the circulatory system
CPT/HCPCS: 12345; 36415; 71045; 80048; 80053; 83690; 84443; 84484; 85025; 85378; 87635; 87804; 93005; 93306; 93970; 96372; 96374; 96375; 99283; 99285; G0378; J0360; J1650; J1940; J2270

== ENCOUNTER → 2019-10-30 17:59 | Outpatient (BNVA) | payer SELFPAY | PROVIDERS: Family Provider Family Medicine; Visit Provider Emergency Medicine | DX: I10 Essential (primary) hypertension (principal); R60.0 Localized edema; I51.89 Other ill-defined heart diseases; E66.9 Obesity, unspecified; G47.33 Obstructive sleep apnea (adult) (pediatric); K21.9 Gastro-esophageal reflux disease without esophagitis | CPT/HCPCS: 80048; 83880 ==

== ENCOUNTER 2019-11-02 13:59 | Inpatient (IN) | payer SELFPAY ==
[2019-11-02] VITALS (15 sets, daily range): BP systolic 153–246; BP diastolic 98–149; PULSE 72–96; RESP 10–25; TEMP 36.4–36.9; O2SAT 86–98; BMI 57.7
--- NOTE | 2019-11-02 14:24 | ECG_ITS ---
[facility] Test Date: 2019-11-02 Pat Name: Eli Michael Department: Room: Gender: Male Data Capture Specialist: : 1980 Requested By: Josue Chowdhury Order Number: [id number] Smooth MD: Joanna Pickett M.D. Measurements Intervals [place] Rate: 85 P: 27 ID: [id number] QRS: -1 QRSD: 84 T: 170 QT: 404 QTc: 482 Interpretive Statements SINUS RHYTHM ST DEVIATION AND MARKED T-WAVE ABNORMALITY, CONSIDER ANTEROLATERAL ISCHEMIA Compared to ECG 07/16/2019 21:55:48 T-wave abnormality now present Possible ischemia now present Ventricular premature complex(es) no longer present Left ventricular hypertrophy no longer present ST (T wave) deviation no longer present Electronically Signed On 11-03-2019 12:44:06 CDT by Joanna Pickett M.D. [id number]
--- NOTE | 2019-11-02 14:25 | XRR_ITS ---
PROCEDURE INFORMATION: Exam: XR Chest, 1 View Exam date and time: 11/02/2019 2:50 PM Age: 39 years old Clinical indication: Cough and dyspnea; Additional info: Dyspnea/cough TECHNIQUE: Imaging protocol: XR of the chest Views: 1 view. COMPARISON: CR Chest 1 [place] [id number] 12/30/2015 1:27 PM FINDINGS: Lungs: Unremarkable. No consolidation. Pleural space: Unremarkable. No pleural effusion. No pneumothorax. Heart/Mediastinum: Unremarkable. No cardiomegaly. Bones/joints: Unremarkable. No interval changes are seen compared to prior XR/XR chest 1V portable [id number] IMPRESSION: No acute findings.
--- NOTE | 2019-11-02 14:34 | PC.NURSE ---
Pt provided with urinal with instructions for urine sample.
--- NOTE | 2019-11-02 14:54 | PC.NURSE ---
Pt states he is unable to void at this time.
[2019-11-02 14:56] LABS: Basophils # 0.1 10^3/uL (0.0-0.1); Basophils % 0.5 %; Eosinophils # 0.2 10^3/uL (0.0-0.8); Eosinophils % 2.3 %; Hematocrit 44.2 % (42.0-52.0); Hemoglobin 14.2 g/dL (11.7-16.6); Lymphocytes # 1.7 10^3/uL (0.8-4.8); Lymphocytes % 17.4 %; Mean Corpuscular HGB Conc 32.1 g/dL (30.0-36.0); Mean Corpuscular Volume 90.4 fL (80-94); Mean Platelet Volume 12.3 fL (7.4-10.4); Monocytes # 0.7 10^3/uL (0.2-0.9); Monocytes % 6.7 %; Neutrophils # 7.04 10^3/uL (1.8-7.7); Neutrophils % 72.7 %; Nucleated Red Blood Cells % 0 %; Platelet Count 197 10^3/cmm (130-400); Red Blood Count 4.89 10^6/uL (4.1-5.3); Red Cell Distribution Width 14.2 % (12.1-15.1); White Blood Count 9.7 10^3/uL (4.0-10.0)
--- NOTE | 2019-11-02 14:57 | W.ED.GENADLT ---
HPI - General Adult General: Chief complaint: General Medical Stated complaint: ACID REFLUX; ELEVATED BP Time Seen by Provider: 11/02/19 14:06 History of Present Illness: HPI narrative: 39-year-old morbidly obese male presents emergency room with complaint of chest discomfort he states it is reflux he also has elevated blood pressure. He has chest discomfort radiated feels like his acid reflux is been going on for last 4 to 5 days he denies being having a cough. Is a little bit short of breath at times he states is not unusual for him he is not diaphoretic there is no radiation of the pain he has really noticed anything that exacerbates or relieves his discomfort we note his oxygen sat on room air was 88 to 89% when he first came to the room. Associated symptoms: Deny chest pain, dyspnea, malaise, nausea, rash or vomiting Review of Systems Const: Denies: fever(s), chills, body aches, change in appetite, fatigue or malaise ENMT: Denies: throat pain, ear or mastoid pain, nasal discharge or nasal congestion Card: Denies: chest pain, edema, dyspnea on exertion or orthopnea Resp: Denies: dyspnea, productive cough or non-productive cough GI: Denies: abdominal pain, nausea, vomiting, hematemesis, coffee ground emesis, diarrhea, constipation, bloating, hematochezia or melena : Denies: flank pain, dysuria, urinary frequency or urinary urgency Skin/Breast: Denies: rash or pruritus [facility] PFSH: Medical History (Updated 11/03/19 @ 08:55 by Michaela Cid MD) CAD (coronary artery disease) Diastolic dysfunction without heart failure GERD (gastroesophageal reflux disease) Hypertension Obesity Obstructive sleep apnea Surgical History History of cholecystectomy History of coronary angiogram Only mild luminal irregularities found, otherwise normal, October 2015 Family History Other Hypertension Social History Smoking and tobacco status: former smoker Alcohol intake: current Alcohol intake frequency: holidays/special occasions only Household members: family Housing: House Physical Exam Const: COMMON NORMALS: no acute distress GENERAL APPEARANCE: cooperative and comfortable ORIENTATION/CONSCIOUSNESS: Yes awake, Yes oriented to person, Yes oriented to place and Yes oriented to time HENMT: COMMON NORMALS: normocephalic, atraumatic, hearing grossly normal bilaterally, external ears normal, EAC's normal, TM's normal bilaterally, Normal nasal mucous membranes and turbinates present, moist oral mucous membranes and oropharynx normal HEAD & SCALP: normocephalic and atraumatic NOSE: Normal nasal mucous membranes and turbinates present EXTERNAL EAR: Yes external ears normal EXTERNAL AUDITORY CANAL: EAC's normal TYMPANIC MEMBRANE: TM's normal bilaterally Eye: COMMON NORMALS: Equal, round and reactive pupils present, EOMs intact bilaterally, conjunctivae normal and no scleral icterus CONJUNCTIVA: Yes conjunctivae normal PUPIL: Yes Equal, round and reactive pupils present Neck/C-Spine: COMMON NORMALS: full ROM, no lymphadenopathy, supple and no JVD Lymph: LYMPHATIC: no lymphadenopathy noted and no lymphedema noted Resp: COMMON NORMALS: normal respiratory effort, No retractions, No use of accessory muscles and clear to auscultation bilaterally AUSCULTATION: clear to auscultation bilaterally Cardio: COMMON NORMALS: no JVD, regular rate, regular rhythm and No murmurs present (Cardio) RATE: regular rate RHYTHM: regular rhythm GI: COMMON NORMALS: Soft to palpation and No hepatosplenomegaly present AUSCULTATION: Yes normoactive bowel sounds PALPATION: Yes Soft to palpation, No Tenderness to palpation present (GI), No Guarding due to palpation present (GI) and Yes No hepatosplenomegaly present OTHER: Patient has been super morbidly obese Extremity: COMMON NORMALS: normal to inspection, capillary refill normal, no clubbing, cyanosis or edema, no calf tenderness and no pedal edema Neuro: SENSORIUM/ORIENTATION: Yes oriented to person, Yes oriented to place and Yes oriented to time Skin: COMMON NORMALS: no rashes or lesions noted GENERAL SKIN EXAM: no rashes or lesions noted Course Vital Signs: Vital signs: Vital Signs Temperature 98.8 F 11/05/19 03:16 Pulse Rate 75 11/05/19 03:16 Respiratory Rate 18 11/05/19 03:16 Blood Pressure 148/88 11/05/19 03:28 Pulse Oximetry 90 11/05/19 03:16 MDM - General Adult MDM Narrative: Medical decision making narrative: Patient has significant coronary artery disease risk and also has elevated troponin will admit for rule out and further testing. Lab Data: Attestation: I reviewed the patient's lab results. Labs: Lab Results 11/02/19 11/02/19 11/02/19 Range/Units 14:38 14:38 14:38 WBC 9.7 (4.0-10.0) 10^3/ uL RBC 4.89 (4.1-5.3) 10^6/u L Hgb 14.2 (11.7-16.6) g/dL Hct 44.2 (42.0-52.0) % MCV 90.4 (80-94) fL MCH 29.0 (28.0-34.0) pg MCHC 32.1 (30.0-36.0) g/dL RDW 14.2 (12.1-15.1) % Plt Count 197 (130-400) 10^3/c mm MPV 12.3 H (7.4-10.4) fL Neut % (Auto) 72.7 % Lymph % (Auto) 17.4 % Cascade % (Auto) 6.7 % Eos % (Auto) 2.3 % Baso % (Auto) 0.5 % Neut # (Auto) 7.04 (1.8-7.7) 10^3/u L Lymph # (Auto) 1.7 (0.8-4.8) 10^3/u L Cascade # (Auto) 0.7 (0.2-0.9) 10^3/u L Eos # (Auto) 0.2 (0.0-0.8) 10^3/u L Baso # (Auto) 0.1 (0.0-0.1) 10^3/u L Nucleated RBC % (a uto) 0 % Nucleated RBCs # 0.0 /100WBC Sodium 141 (136-145) mmol/L Potassium 4.2 (3.5-5.1) mmol/L Chloride 102 (98-107) mmol/L Carbon Dioxide 31 H (22-29) mmol/L Anion Gap 12.2 (5-19) BUN 15 (6-20) mg/dL Creatinine 1.2 (0.7-1.2) mg/dL GFR Calculation 66.7 L (90-130) mL/min Glucose 98 (65-115) mg/dL Calculated Osmolal ity 288 (285-295) mOsm/k g Calcium 9.5 (8.5-10.5) mg/dL Total Bilirubin 0.8 (0.15-1.2) mg/dL AST 30 (0-40) U/L ALT 40 (0-41) U/L Alkaline Phosphata se 53 (40-130) IU/L Troponin T Baselin e 66 H (0-15) ng/L Total Protein 6.7 (6.6-8.7) g/dL Albumin 3.9 (3.5-5.2) g/dL Globulin 2.8 (1.3-4.6) g/dL Discharge Plan Discharge Patient Disposition: Placed in Observation Admit Provider: Michaela Cid Discharge Date/Time: 11/02/19 17:50 Coding Level of Care Code ED Correctional Manager for Joelg Fwd Exam Comprehensive
[2019-11-02] MEDS: hyDRALAzine 20 mg/mL INJ 1 mL IVP (15:06)
[2019-11-02] MEDS: amlodipine 10 mg Tablet PO (15:06)
[2019-11-02 15:26] LABS: Alanine Aminotransferase 40 U/L (0-41); Albumin Level 3.9 g/dL (3.5-5.2); Alkaline Phosphatase 53 IU/L (40-130); Aspartate Amino Transferase 30 U/L (0-40); Blood Urea Nitrogen 15 mg/dL (6-20); Calcium 9.5 mg/dL (8.5-10.5); Carbon Dioxide 31 mmol/L (22-29); Chloride 102 mmol/L (98-107); Globulin 2.8 g/dL (1.3-4.6); Glomerular Filtration Rate 66.7 mL/min (90-130); Glucose 98 mg/dL (65-115); Osmolality Calculated 288 mOsm/kg (285-295); Sodium 141 mmol/L (136-145); Total Bilirubin 0.8 mg/dL (0.15-1.2); Total Protein 6.7 g/dL (6.6-8.7)
[2019-11-02 15:49] LABS: Troponin(5th) Baseline 66 ng/L (0-15)
[2019-11-02 15:50] LABS: Anion Gap 12.2 (5-19); Potassium 4.2 mmol/L (3.5-5.1)
[2019-11-02] MEDS: cloNIDine 0.1 mg Tablet PO (16:42)
--- NOTE | 2019-11-02 16:43 | CTR_ITS ---
PROCEDURE INFORMATION: Exam: CT Angiography Chest With Contrast Exam date and time: 11/02/2019 4:59 PM Age: 39 years old Clinical indication: Dyspnea; Patient HX: C/O chest discomfort w HTN and dec o2 sats TECHNIQUE: Imaging protocol: Computed tomographic angiography of the chest with intravenous contrast. 3D rendering: MIP and/or 3D reconstructed images were created by the technologist. Radiation optimization: All CT scans at this facility use at least one of these dose optimization techniques: automated exposure control; mA and/or kV adjustment per patient size (includes targeted exams where dose is matched to clinical indication); or iterative reconstruction. Contrast material: OMNI 350; Contrast volume: 95 ml; Contrast route: INTRAVENOUS (IV); COMPARISON: CR XR chest 1V portable [id number] 11/02/2019 2:34 PM RADIATION DOSE METRICS: Total DLP (mGy-cm): 611.03 FINDINGS: Pulmonary arteries: Normal. No pulmonary emboli. Aorta: Unremarkable. No aortic aneurysm. No aortic dissection. Lungs: Calcified granuloma in the left lower lobe. No focal consolidation. Mild scattered atelectasis. Pleural space: Unremarkable. No pneumothorax. No pleural effusion. Heart: Unremarkable. No cardiomegaly. No pericardial effusion. Lymph nodes: Subcentimeter mediastinal lymph nodes are most likely reactive. Kidneys and ureters: Likely benign cyst in the superior left kidney, Hounsfield units less than 20. No follow-up is recommended. Bones/joints: Mild scoliosis. No compression fracture. Soft tissues: Unremarkable. CT/CT angio chest PE protcl [id number] IMPRESSION: 1. No evidence for pulmonary embolus or other acute finding. COMMENTS: Consistent with the [place] [employer]'s Incidental Findings Committee white paper (J Am Conchis Radiol 2018): Any incidental renal lesion less than 1.0 cm or classified as too small to characterize, or any incidental cystic renal lesion characterized as simple-appearing, is likely benign. No follow-up imaging is recommended for these lesions per consensus recommendations based on imaging criteria. Radiation Dose CTDIVOL = (mGy): DLP = 611.03 (mGy-cm)
[2019-11-02] MEDS: metoprolol tartrate 50 mg Tablet PO (17:02)
[2019-11-02] MEDS: nitroglycerin 1 gm/inch oint Pkt 0.5 INCH TOPICAL (17:02)
[2019-11-02] MEDS: enoxaparin 120 mg/0.8 mL Syringe SUBCUT (17:03)
[2019-11-02 17:10] LABS: Add Urine Microscopic? YES; Bilirubin Urine Neg (NEGATIVE); Blood Urine Neg (Negative); Glucose Urine UA Norm (Normal); Ketones Urine Negative (Negative); Leukocyte Esterase Urine Negative (Negative); Nitrate Urine Negative (Negative); Protein Urine 2+ (Negative); Urine Appearance Clear (CLEAR); Urine Color Yellow (Yellow); Urobilinogen Urine Norm (Negative); pH Urine 6 (5-7)
[2019-11-02 17:18] LABS: Bacteria Urine TRACE; Mucus Urine TRACE; Squamous Epithelial Cell Urine 0-4 (0-5); WBC Urine 0-4 /hpf (0-5)
[2019-11-02 17:19] LABS: Add Urine Culture? No
[2019-11-02 17:21] LABS: Troponin 5 2HR 69.49 ng/L (0-15); Troponin 5 2HR Delta 3.49 ABS# (0-10)
--- NOTE | 2019-11-02 17:25 | PC.NURSE ---
Attempted to call report, nurse unavailable at this time. Pt to CT.
[2019-11-02] MEDS: iohexol 350 mg/mL 100 mL Btl IV (17:37)
--- NOTE | 2019-11-02 18:30 | PC.NURSE ---
received from er via stretcher at 1810.report received.pt is alert and awake.sr on monitor.bp 185/110.pt states he has a headache 09/17..and has since nitroglycerin in ambulance.oriented to room environment.instructed to notify staff for any increase in headache,cp,sob...or for any concerns at all.pt verb understanding of instructions.
--- NOTE | 2019-11-02 19:49 | PC.NURSE ---
Rounding: Patient resting in bed. Patient is alert and oriented and denies any pain or needs at this time. Will continue to monitor.
--- NOTE | 2019-11-02 20:04 | PM.HP ---
Providers/Chief Complaint Admitting Physician: Michaela Cid MD Primary Care Provider: Estelle Kendrick DO Chief Complaint: ACID REFLUX; ELEVATED BP History of Present Illness Eli Michael is a 39 year old male with PMHx noted below presents from home for evaluation of chest pressure, shortness of breath particularly with exertion, increasing lower extremity swelling for the past 4 to 5 days. He initially attributed his symptoms to reflux but chest pressure has been constant, non-radiating and nothing seems to be making this better. He has also had a headache. He is not oxygen dependent at baseline. Has a known history of obstructive sleep apnea but is unable to afford CPAP as he is uninsured. He reports having run out of his meds several weeks ago as he has been unable to afford them as well. He is visibly dyspneic during my assessment on the floor, additional collateral information obtained from review of medical record. He had previously been admitted to our facility in July 2019 with similar symptoms at which time he was diuresed due to noted acute CHF exacerbation. He had been tested for COVID-19 during that visit as well which was negative. He was quite hypertensive on initial assessment in the ER with noted systolic blood pressure greater than 200 and diastolic blood pressure greater than 110. He received multiple antihypertensive medications including clonidine, hydralazine, metoprolol, amlodipine. He also received a dose of therapeutic Lovenox. Work-up so far shows normal white count, normal hemoglobin, normal electrolytes, normal renal function, elevated troponins with no significant delta. CTA of the chest is negative for PE or any other acute findings. Due to noted hypertensive urgency, clinical indication of decompensated CHF patient will be admitted to [facility] for further care. Review of Systems Const: Reports: change in appetite (decreased appetite); Denies: fever(s) or chills Eyes: Denies: change in vision ENMT: Reports: dry mouth Card: Reports: chest pain, edema (bilateral LEs), swelling of feet/ankles and dyspnea on exertion; Denies: lightheadedness, syncope or pre-syncope Resp: Reports: dyspnea; Denies: productive cough or non-productive cough GI: Reports: nausea and heartburn; Denies: abdominal pain, vomiting, hematemesis or hematochezia : Denies: dysuria, urinary frequency or hematuria Musc: Reports: other (bilateral knee pain with weight-bearing); Denies: back pain Skin/Breast: Denies: rash Neuro: Denies: numbness in extremities or weakness in extremities Psych: Denies: anxiety Medications/Allergies Home Medications Medication Instructions Recorded Confirmed Last Taken Type furosemide 40 mg tablet 40 mg PO DAILY #30 tab 10/30/19 11/02/19 Unknown Rx hydrochlorothiazide 25 mg tablet 25 mg PO DAILY #30 tab 10/30/19 11/02/19 Unknown Rx isosorbide mononitrate 30 mg 30 mg PO DAILY #30 tab 10/30/19 11/02/19 Unknown Rx tablet,extended release 24 hr lisinopril 10 mg tablet 10 mg PO DAILY #30 tab 10/30/19 11/02/19 Unknown Rx metoprolol tartrate 25 mg tablet 25 mg PO BID #60 tab 10/30/19 11/02/19 Unknown Rx pantoprazole 40 mg tablet,delayed 40 mg PO DAILY #30 tab 10/30/19 11/02/19 Unknown Rx release potassium chloride 20 mEq 20 meq PO DAILY #30 tab 10/30/19 11/02/19 Unknown Rx tablet,extended release Allergies Allergy/AdvReac Type Severity Reaction Status Date / Time aspirin Allergy Unknown Verified 10/30/19 16:18 PFSH Acute PFSH: Medical History (Updated 11/02/19 @ 20:28 by Michaela Cid MD) CAD (coronary artery disease) Diastolic dysfunction without heart failure GERD (gastroesophageal reflux disease) Hypertension Obesity Obstructive sleep apnea Surgical History History of cholecystectomy History of coronary angiogram Only mild luminal irregularities found, otherwise normal, October 2015 Family History Other Hypertension Social History Smoking and tobacco status: former smoker Alcohol intake: current Alcohol intake frequency: holidays/special occasions only Substance/Drug Use: never Household members: family Housing: House Vitals/I&O/Wt Last Vital Signs Temp 98.5 F 11/02/19 14:00 Pulse 72 11/02/19 18:30 Resp 18 11/02/19 18:30 BP 153/106 11/02/19 18:30 Pulse Ox 92 11/02/19 18:30 Weight last 48 hrs Weight 172.365 kg Physical Exam Const: COMMON NORMALS: no acute distress, patient oriented x3 and alert GENERAL APPEARANCE: cooperative and comfortable NUTRITIONAL APPEARANCE: obese morbidly obese ORIENTATION/CONSCIOUSNESS: Yes awake HENMT: COMMON NORMALS: normocephalic, atraumatic, hearing grossly normal bilaterally and moist oral mucous membranes HEAD & SCALP: normocephalic and atraumatic Eye: COMMON NORMALS: Equal, round and reactive pupils present, EOMs intact bilaterally and conjunctivae normal CONJUNCTIVA: Yes conjunctivae normal PUPIL: Yes Equal, round and reactive pupils present Neck/C-Spine: COMMON NORMALS: full ROM GENERAL: Yes normal visual inspection and Yes trachea midline OTHER: -short, thick neck Resp: EFFORT & INSPECTION: Yes tachypneic OTHER: -auscultation quite limited by body habitus; equal air entry bilaterally, conversational dyspnea, on 2 L NC Cardio: COMMON NORMALS: regular rate, regular rhythm, S1 normal heart sound present, S2 normal heart sound present and No murmurs present (Cardio) RATE: regular rate RHYTHM: regular rhythm HEART SOUNDS: S1 normal heart sound present and S2 normal heart sound present GI: COMMON NORMALS: Normal to inspection, nondistended, normoactive bowel sounds present, Soft to palpation and non-tender INSPECTION: Yes central obesity PALPATION: Yes Soft to palpation Extremity: COMMON NORMALS: normal to inspection and full ROM GENERAL: Yes edema (1-2+ pitting edema of bilateral LEs) Neuro: COMMON NORMALS: patient oriented x3, moves all extremities, no focal motor deficits and no sensory deficits noted Psych: COMMON NORMALS: mental status grossly normal, Normal thought process present, cooperative, normal affect and speech normal SPEECH: Yes normal speech THOUGHT PROCESS: Normal thought process present Skin: COMMON NORMALS: no rashes or lesions noted, no jaundice, no petechiae and no mottling GENERAL SKIN EXAM: no rashes or lesions noted Data : 11/02/19 14:38 11/02/19 14:38 A&P Assessment and plan (1) Hypertensive urgency: -Secondary to having run out of his medications several weeks ago, has been unable to afford these -Noted to be in hypertensive urgency with systolic blood pressure greater than 200 -So far has received amlodipine 10 mg p.o., 20 mg IV hydralazine, clonidine 0.1 mg, 50 mg of metoprolol p.o. and has 0.5 inch of Nitropaste. -Resume previous oral antihypertensive regimen -Hydralazine PRN -Close monitoring of vital signs -Hypertensive urgency is likely contributing to dyspnea, chest discomfort Status: Acute (2) Chest pain: -Likely related to hypertensive urgency -Troponins noted to be elevated though delta is non-significant -Had previous echo done in 07/28 which was a poor study with ejection fraction likely lower limit of normal -We will likely need stress testing though is quite dyspneic and with the weekend will be unable to get this done -CTA negative for PE -Recent TSH which was normal, check lipid panel and A1c -Telemetry monitoring Status: Acute Qualifiers: Chest pain type: unspecified Qualified Code(s): R07.9 - Chest pain, unspecified (3) GERD (gastroesophageal reflux disease): -resume PPI Status: Chronic Qualifiers: Esophagitis presence: esophagitis presence not specified Qualified Code(s): K21.9 - Gastro-esophageal reflux disease without esophagitis (4) Obstructive sleep apnea: -Some of his shortness of breath is likely secondary to SUSANA. Untreated SUSANA is also contributing to poorly controlled hypertension. -Has been unable to afford CPAP, will use CPAP nightly while here Status: Chronic (5) Obesity: -Morbidly obese with a BMI of 58 kg/m2 -Associated poorly controlled hypertension, obstructive sleep apnea Status: Chronic Qualifiers: Obesity type: due to excess calories Obesity classification: adult class 3 (BMI >= 40) Serious obesity comorbidity presence: with serious comorbidity Body mass index: BMI 50.0-59.9 Qualified Code(s): E66.01 - Morbid (severe) obesity due to excess calories; Z68.43 - Body mass index (BMI) 50.0-59.9, adult (6) Hypertension: -As noted above Status: Chronic Qualifiers: Hypertension type: essential hypertension Qualified Code(s): I10 - Essential (primary) hypertension (7) Elevated troponin: -Likely related to hypertensive urgency -Troponins noted to be elevated though delta is non-significant -Serial EKGs -Likely type II secondary to hypertensive urgency Status: Acute (8) Diastolic CHF: -Appears to be mildly clinically decompensated with noted conversational dyspnea, bilateral lower extremity edema -IV diuresis for now -monitor Is & Os, daily weights -Echo noted above Qualifiers: Heart failure chronicity: acute on chronic Qualified Code(s): I50.33 - Acute on chronic diastolic (congestive) heart failure Additional A&P Information -cardiac diet as tolerated -GI ppx with PPI -DVT ppx with lovenox -Dispo: home; uninsured and has been unable to afford his medications and CPAP, case management consult placed -Code status: FULL code Attestations Medical Necessity Statement*: Eli Michael's hospital stay will require greater than 2 midnights for management of hypertensive urgency, acute CHF exacerbation requiring close monitoring of hemodynamic status, IV diuresis. Time Spent in Patient Care: Greater than 35 minutes (>than 50% of time spent in counselling and/or direct pt care on unit). Coding Level of Care Code Acute Pediatric Orthodontist for Chg Fwd Diagnoses Hypertensive urgency I16.0 Chest pain R07.9 Chest pain type: unspecified GERD (gastroesophageal reflux disease) K21.9 Esophagitis presence: esophagitis presence not specified Obstructive sleep apnea G47.33 Obesity E66.01; Z68.43 Obesity type: due to excess calories Obesity classification: adult class 3 (BMI >= 40) Serious obesity comorbidity presence: with serious comorbidity Body mass index: BMI 50.0-59.9 Hypertension I10 Hypertension type: essential hypertension Elevated troponin R79.89 Diastolic CHF I50.33 Heart failure chronicity: acute on chronic
--- NOTE | 2019-11-02 20:24 | ECG_ITS ---
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 Measurements Intervals [place] Rate: 73 P: 35 VT: 172 QRS: -1 QRSD: 90 T: 185 QT: 434 QTc: 480 Interpretive Statements SINUS RHYTHM POSSIBLE LEFT ATRIAL ENLARGEMENT [-0.1mV P WAVE IN V1/V2] ST DEVIATION AND MODERATE T-WAVE ABNORMALITY, CONSIDER ANTEROLATERAL ISCHEMIA [-0.1+ mV T WAVE IN V3-V6] ST DEVIATION AND MODERATE T-WAVE ABNORMALITY, CONSIDER INFERIOR ISCHEMIA [-0.1+ mV T WAVE IN II/aVF] Compared to ECG 11/02/2019 14:28:02 No significant changes Electronically Signed On 11-03-2019 12:52:28 CDT by Joanna Pickett M.D. [id number]
[2019-11-02 20:38] LABS: Troponin 5 6HR 67.17 ng/L (0-15); Troponin 5 6HR Delta 1.17 ng/L (0-12)
[2019-11-02] MEDS: FUROsemide 10 mg/mL SDV 2mL 20 MG IVP (21:23)
[2019-11-02] MEDS: enoxaparin 40 mg/0.4 mL Syringe SUBCUT (21:23)
--- NOTE | 2019-11-02 21:30 | PC.NURSE ---
Patient given HIPPA password which he gave his to his family. PAtient refusing to wear a gown at this time.
[2019-11-02] MEDS: acetaminophen 325 mg Tablet 650 MG PO (21:51)
--- NOTE | 2019-11-02 22:58 | PC.NURSE ---
Patient incontinent into the floor and on himself why not all the urine is charted in mls.
[2019-11-03] VITALS (8 sets, daily range): BP systolic 130–194; BP diastolic 58–120; PULSE 65–78; RESP 16–32; TEMP 36.3–37.1; O2SAT 91–97; BMI 57.4
--- NOTE | 2019-11-03 00:26 | PC.NURSE ---
Offered to put patient on CPAP. Patient oxygen saturations drop while he sleeps despite wearing a nasal cannula. Patient states well it does that all the time. Will continue to monitor.
[2019-11-03 05:05] LABS: Basophils # 0.1 10^3/uL (0.0-0.1); Basophils % 0.4 %; Eosinophils # 0.2 10^3/uL (0.0-0.8); Eosinophils % 1.5 %; Hematocrit 46.5 % (42.0-52.0); Hemoglobin 14.3 g/dL (11.7-16.6); Lymphocytes # 1.7 10^3/uL (0.8-4.8); Lymphocytes % 13.3 %; Mean Corpuscular HGB Conc 30.8 g/dL (30.0-36.0); Mean Corpuscular Hemoglobin 28.7 pg (28.0-34.0); Mean Corpuscular Volume 93.2 fL (80-94); Mean Platelet Volume 12.5 fL (7.4-10.4); Monocytes # 0.9 10^3/uL (0.2-0.9); Neutrophils # 9.65 10^3/uL (1.8-7.7); Neutrophils % 77.3 %; Nucleated Red Blood Cells % 0 %; Platelet Count 114 10^3/cmm (130-400); Red Blood Count 4.99 10^6/uL (4.1-5.3); Red Cell Distribution Width 14.6 % (12.1-15.1); White Blood Count 12.5 10^3/uL (4.0-10.0)
--- NOTE | 2019-11-03 05:23 | PC.NURSE ---
End of shift: Patient has rested on and off this shift. Patient refused to wear his CPAP this evening. Patient did put a put a gown on later on into the shift. Patient vitals remain stable and patient is alert and oriented. Will continue to monitor.
[2019-11-03 05:59] LABS: Alanine Aminotransferase 34 U/L (0-41); Albumin Level 3.7 g/dL (3.5-5.2); Alkaline Phosphatase 53 IU/L (40-130); Anion Gap 10.7 (5-19); Aspartate Amino Transferase 26 U/L (0-40); Blood Urea Nitrogen 19 mg/dL (6-20); Carbon Dioxide 33 mmol/L (22-29); Chloride 99 mmol/L (98-107); Globulin 2.9 g/dL (1.3-4.6); Glomerular Filtration Rate 55.8 mL/min (90-130); Glucose 118 mg/dL (65-115); Osmolality Calculated 284 mOsm/kg (285-295); Potassium 4.7 mmol/L (3.5-5.1); Sodium 138 mmol/L (136-145); Total Bilirubin 0.4 mg/dL (0.15-1.2); Total Protein 6.6 g/dL (6.6-8.7)
[2019-11-03 06:37] LABS: Chol HDL Ratio 4.68 mg/dL (1.0-5.00); Cholesterol 117 mg/dL (0-200); HDL Cholesterol 25 mg/dL (60-100); LDL Cholesterol Calculated 71 mg/dL (50-129); LDL HDL Ratio 2.84 RATIO (0.00-3.22); Triglycerides 106 mg/dL (0-150)
[2019-11-03 06:52] LABS: Estmated Average Glucose 154
--- NOTE | 2019-11-03 08:48 | PM.PN ---
Subjective Subjective: Interval history: Had 1500 mL urine output overnight, some improvement in blood pressure control overnight, seems to be trending up again this morning. Tachypneic, on 2 L nasal cannula, heart rate regular and within normal limits, afebrile. Noted slight increase in creatinine to 1.4 today, A1c of 7.0, slight increase in leukocytosis with white count of 12.5. Feels better after taking a shower, BP on his return better but he is still hypertensive. Medications: Reviewed: Yes Medication Review Details: Active Medications Generic Name Dose Route Start Last Admin Trade Name Freq PRN Reason Stop Dose Admin Acetaminophen 650 mg 11/02/19 20:04 11/02/19 21:51 Tylenol PO 650 mg Q6H PRN Administration Mild/Mod Pain Or Temp >/= 101 Calcium Carbonate 500 mg 11/02/19 20:04 Tums PO Q4H PRN INDIGESTION Enoxaparin Sodium 40 mg 11/02/19 20:15 11/02/19 21:23 Lovenox SUBCUT 40 mg Q24H VENUS Administration Furosemide 20 mg 11/02/19 20:15 11/02/19 21:23 Lasix IVP 20 mg Q12H VENUS Administration Hydralazine HCl 10 mg 11/02/19 20:04 Apresoline IVP Q4H PRN elevated BP Hydrochlorothiazid e 25 mg 11/03/19 09:00 Hctz PO DAILY [facility] Isosorbide Mononit rate 30 mg 11/03/19 09:00 Imdur PO DAILY [facility] Lisinopril 10 mg 11/03/19 09:00 Prinivil PO DAILY [facility] Metoprolol Tartrat e 25 mg 11/03/19 09:00 Lopressor PO BID [facility] Morphine Sulfate 2 mg 11/02/19 20:04 Morphine IVP Q4H PRN SEVERE PAIN Ondansetron HCl 4 mg 11/02/19 20:04 Zofran IVP Q8H PRN vomiting, or N/V if npo Pantoprazole Sodiu m 40 mg 11/03/19 09:00 Protonix PO BID [facility] Potassium Chloride 20 meq 11/03/19 09:00 Klor-Con 10 PO DAILY [facility] aspirin Allergy (Verified 10/30/19 16:18) Unknown Vitals/I&O/Wt Last Vital Signs Temp 98.4 F 11/03/19 07:11 Pulse 73 11/03/19 07:11 Resp 29 H 11/03/19 07:11 BP 194/120 11/03/19 07:11 Pulse Ox 96 11/03/19 07:11 11/02/19 11/03/19 11/03/19 22:59 06:59 14:59 Intake Total 350 / 350 360 / 360 Output Total 850 / 850 650 / 1500 300 / 300 Balance -850 / -850 -300 / -1150 60 / 60 Weight last 48 hrs Weight 171.543 kg Weight 172.365 kg Physical Exam Const: COMMON NORMALS: no acute distress, patient oriented x3 and alert GENERAL APPEARANCE: cooperative and comfortable NUTRITIONAL APPEARANCE: obese morbidly obese ORIENTATION/CONSCIOUSNESS: Yes awake HENMT: COMMON NORMALS: normocephalic, atraumatic, hearing grossly normal bilaterally and moist oral mucous membranes HEAD & SCALP: normocephalic and atraumatic Eye: COMMON NORMALS: Equal, round and reactive pupils present, EOMs intact bilaterally and conjunctivae normal CONJUNCTIVA: Yes conjunctivae normal PUPIL: Yes Equal, round and reactive pupils present Neck/C-Spine: COMMON NORMALS: full ROM GENERAL: Yes normal visual inspection and Yes trachea midline OTHER: -short, thick neck Resp: EFFORT & INSPECTION: Yes tachypneic OTHER: -auscultation quite limited by body habitus; equal air entry bilaterally, conversational dyspnea, on 2 L NC Cardio: COMMON NORMALS: regular rate, regular rhythm, S1 normal heart sound present, S2 normal heart sound present and No murmurs present (Cardio) RATE: regular rate RHYTHM: regular rhythm HEART SOUNDS: S1 normal heart sound present and S2 normal heart sound present GI: COMMON NORMALS: Normal to inspection, nondistended, normoactive bowel sounds present, Soft to palpation and non-tender INSPECTION: Yes central obesity PALPATION: Yes Soft to palpation Extremity: COMMON NORMALS: normal to inspection and full ROM GENERAL: Yes edema (1-2+ pitting edema of bilateral LEs) Neuro: COMMON NORMALS: patient oriented x3, moves all extremities, no focal motor deficits and no sensory deficits noted SENSORIUM/ORIENTATION: Yes alert Psych: COMMON NORMALS: mental status grossly normal, Normal thought process present, cooperative, normal affect and speech normal SPEECH: Yes normal speech THOUGHT PROCESS: Normal thought process present Skin: COMMON NORMALS: no rashes or lesions noted, no jaundice, no petechiae and no mottling GENERAL SKIN EXAM: no rashes or lesions noted Data : 11/03/19 04:39 11/03/19 04:39 A&P Assessment and plan (1) Hypertensive urgency: -Secondary to having run out of his medications several weeks ago, has been unable to afford these -Noted to be in hypertensive urgency with systolic blood pressure greater than 200 -received multiple antihypertensives in ED -Resumed previous oral antihypertensive regimen; titrate as needed for optimal BP control -Hydralazine PRN -Close monitoring of vital signs -Hypertensive urgency is likely contributing to dyspnea, chest discomfort Status: Acute (2) Chest pain: -Likely related to hypertensive urgency -Troponins noted to be elevated though delta is non-significant -Had previous echo done in 07/28 which was a poor study with ejection fraction likely lower limit of normal -We will likely need stress testing though is quite dyspneic and with the weekend will be unable to get this done -CTA negative for PE -Recent TSH which was normal, lipid panel wnl, A1c-7.0 -Telemetry monitoring Status: Acute Qualifiers: Chest pain type: unspecified Qualified Code(s): R07.9 - Chest pain, unspecified (3) GERD (gastroesophageal reflux disease): -resume PPI Status: Chronic Qualifiers: Esophagitis presence: esophagitis presence not specified Qualified Code(s): K21.9 - Gastro-esophageal reflux disease without esophagitis (4) Obstructive sleep apnea: -Some of his shortness of breath is likely secondary to SUSANA. Untreated SUSANA is also contributing to poorly controlled hypertension. -Has been unable to afford CPAP, will use CPAP nightly while here Status: Chronic (5) Obesity: -Morbidly obese with a BMI of 58 kg/m2 -Associated poorly controlled hypertension, obstructive sleep apnea Status: Chronic Qualifiers: Body mass index: BMI 50.0-59.9 Obesity classification: adult class 3 (BMI >= 40) Obesity type: due to excess calories Serious obesity comorbidity presence: with serious comorbidity Qualified Code(s): E66.01 - Morbid (severe) obesity due to excess calories; Z68.43 - Body mass index (BMI) 50.0-59.9, adult (6) Hypertension: -As noted above Status: Chronic Qualifiers: Hypertension type: essential hypertension Qualified Code(s): I10 - Essential (primary) hypertension (7) Elevated troponin: -Likely related to hypertensive urgency -Troponins noted to be elevated though delta is non-significant -Serial EKGs -Likely type II secondary to hypertensive urgency Status: Acute Additional A&P Information -new diagnosis of DM type II; A1c-7.0, accuchecks, ISS -cardiac consistent carb diet as tolerated -GI ppx with PPI -DVT ppx with lovenox -Dispo: home; uninsured and has been unable to afford his medications and CPAP, case management consult placed -Code status: FULL code Attestations Medical Necessity Statement*: Patient requires hospitalization for continued management of hypertensive urgency with chest pain requiring close monitoring of blood pressure, multiple antihypertensive agents. Time Spent in Patient Care: 16 - 35 minutes (>than 50% of time spent in counselling and/or direct pt care on unit). Coding Level of Care Code Acute Control Panel Operator Crude Unit for Chg Fwd Exam Comprehensive Diagnoses Hypertensive urgency I16.0 Chest pain R07.9 Chest pain type: unspecified GERD (gastroesophageal reflux disease) K21.9 Esophagitis presence: esophagitis presence not specified Obstructive sleep apnea G47.33 Obesity E66.01; Z68.43 Body mass index: BMI 50.0-59.9 Obesity classification: adult class 3 (BMI >= 40) Obesity type: due to excess calories Serious obesity comorbidity presence: with serious comorbidity Hypertension I10 Hypertension type: essential hypertension Elevated troponin R79.89
[2019-11-03] MEDS: FUROsemide 10 mg/mL SDV 2mL 20 MG IVP ×2 (09:37→20:45)
[2019-11-03] MEDS: potassium chloride ER 10 mEq Tablet 20 MEQ PO (09:38)
[2019-11-03] MEDS: lisinopril 10 mg Tablet PO (09:38)
[2019-11-03] MEDS: pantoprazole DR 40 mg Tablet PO ×2 (09:38→17:20)
[2019-11-03] MEDS: isosorbide mononitrate ER 30 mg Tablet PO (09:38)
[2019-11-03] MEDS: hydroCHLOROthiazide 25 mg Tablet PO (09:38)
[2019-11-03] MEDS: metoprolol tartrate 25 mg Tablet PO ×2 (09:39→17:19)
[2019-11-03] MEDS: lisinopril 20 mg Tablet PO (09:43)
[2019-11-03 11:28] LABS: Glucose Point of Care 135 mg/dL (70-110)
[2019-11-03] MEDS: acetaminophen 325 mg Tablet 650 MG PO (15:28)
[2019-11-03 16:07] LABS: Glucose Point of Care 118 mg/dL (70-110)
[2019-11-03 20:20] LABS: Glucose Point of Care 167 mg/dL (70-110)
[2019-11-03] MEDS: enoxaparin 40 mg/0.4 mL Syringe SUBCUT (20:46)
--- NOTE | 2019-11-03 22:16 | PC.NURSE ---
Patient does not have any complaints at this time. Will monitor.
[2019-11-04] VITALS (7 sets, daily range): BP systolic 131–170; BP diastolic 68–94; PULSE 66–78; RESP 14–28; TEMP 36.6–37.1; O2SAT 90–97
[2019-11-04 06:06] LABS: Basophils # 0.1 10^3/uL (0.0-0.1); Basophils % 0.4 %; Eosinophils # 0.3 10^3/uL (0.0-0.8); Eosinophils % 2.2 %; Hematocrit 48.3 % (42.0-52.0); Hemoglobin 14.8 g/dL (11.7-16.6); Lymphocytes # 1.6 10^3/uL (0.8-4.8); Lymphocytes % 11.8 %; Mean Corpuscular HGB Conc 30.6 g/dL (30.0-36.0); Mean Corpuscular Hemoglobin 28.5 pg (28.0-34.0); Mean Corpuscular Volume 93.1 fL (80-94); Mean Platelet Volume 12.5 fL (7.4-10.4); Monocytes # 0.8 10^3/uL (0.2-0.9); Monocytes % 5.7 %; Neutrophils % 79.5 %; Nucleated Red Blood Cells % 0 %; Platelet Count 231 10^3/cmm (130-400); Red Blood Count 5.19 10^6/uL (4.1-5.3); Red Cell Distribution Width 14.7 % (12.1-15.1); White Blood Count 13.7 10^3/uL (4.0-10.0)
--- NOTE | 2019-11-04 06:09 | PC.NURSE ---
Patient does not have any complaints at this time. Patient refused his CPAP. Around 4 am nurse educated patient that his oxygen saturation drops very low and patient agreed to wear his CPAP. A few minutes later, patient pulled CPAP off and stated he did not want to wear it. Continous pulse ox is on and patient is on 3 L NC. Will monitor.
[2019-11-04 06:26] LABS: Anion Gap 13.4 (5-19); Blood Urea Nitrogen 18 mg/dL (6-20); Calcium 8.1 mg/dL (8.5-10.5); Carbon Dioxide 32 mmol/L (22-29); Chloride 98 mmol/L (98-107); Glomerular Filtration Rate 55.8 mL/min (90-130); Glucose 128 mg/dL (65-115); Osmolality Calculated 286 mOsm/kg (285-295); Potassium 4.4 mmol/L (3.5-5.1); Sodium 139 mmol/L (136-145)
[2019-11-04 06:38] LABS: Glucose Point of Care 139 mg/dL (70-110)
[2019-11-04] MEDS: acetaminophen 325 mg Tablet 650 MG PO ×2 (07:23→15:20)
[2019-11-04] MEDS: FUROsemide 10 mg/mL SDV 2mL 20 MG IVP ×2 (08:45→20:48)
[2019-11-04] MEDS: potassium chloride ER 10 mEq Tablet 20 MEQ PO (08:46)
[2019-11-04] MEDS: isosorbide mononitrate ER 30 mg Tablet PO (08:46)
[2019-11-04] MEDS: lisinopril 20 mg Tablet PO (08:46)
[2019-11-04] MEDS: metoprolol tartrate 25 mg Tablet PO ×2 (08:46→16:54)
[2019-11-04] MEDS: hydroCHLOROthiazide 25 mg Tablet PO (08:46)
[2019-11-04] MEDS: pantoprazole DR 40 mg Tablet PO ×2 (08:46→16:54)
[2019-11-04 11:14] LABS: Glucose Point of Care 155 mg/dL (70-110)
[2019-11-04 12:28] LABS: NT Pro B Type Natriuretic Pept 1110 pg/mL (0-125)
--- NOTE | 2019-11-04 12:52 | PM.PN ---
Subjective Subjective: Interval history: urine output 3.5L, net negative 2.3L, improvement in blood pressure control overnight, seems to be Tachypneic, continues on 3L nasal cannula, heart rate regular and within normal limits, afebrile. Noted slight increase in creatinine to 1.4 today, A1c of 7.0, slight increase in leukocytosis with white count of 12.5. Feels better after taking a shower. remains afebrile. Medications: Reviewed: Yes Medication Review Details: Active Medications Generic Name Dose Route Start Last Admin Trade Name Freq PRN Reason Stop Dose Admin Acetaminophen 650 mg 11/02/19 20:04 11/02/19 21:51 Tylenol PO 650 mg Q6H PRN Administration Mild/Mod Pain Or Temp >/= 101 Calcium Carbonate 500 mg 11/02/19 20:04 Tums PO Q4H PRN INDIGESTION Enoxaparin Sodium 40 mg 11/02/19 20:15 11/02/19 21:23 Lovenox SUBCUT 40 mg Q24H VENUS Administration Furosemide 20 mg 11/02/19 20:15 11/02/19 21:23 Lasix IVP 20 mg Q12H VENUS Administration Hydralazine HCl 10 mg 11/02/19 20:04 Apresoline IVP Q4H PRN elevated BP Hydrochlorothiazid e 25 mg 11/03/19 09:00 Hctz PO DAILY [facility] Isosorbide Mononit rate 30 mg 11/03/19 09:00 Imdur PO DAILY [facility] Lisinopril 10 mg 11/03/19 09:00 Prinivil PO DAILY [facility] Metoprolol Tartrat e 25 mg 11/03/19 09:00 Lopressor PO BID [facility] Morphine Sulfate 2 mg 11/02/19 20:04 Morphine IVP Q4H PRN SEVERE PAIN Ondansetron HCl 4 mg 11/02/19 20:04 Zofran IVP Q8H PRN vomiting, or N/V if npo Pantoprazole Sodiu m 40 mg 11/03/19 09:00 Protonix PO BID [facility] Potassium Chloride 20 meq 11/03/19 09:00 Klor-Con 10 PO DAILY [facility] aspirin Allergy (Verified 10/30/19 16:18) Unknown Vitals/I&O/Wt Last Vital Signs Temp 97.8 F 11/04/19 10:48 Pulse 77 11/04/19 10:48 Resp 14 11/04/19 10:48 BP 131/76 11/04/19 10:48 Pulse Ox 96 11/04/19 10:48 11/03/19 11/04/19 11/04/19 22:59 06:59 14:59 Intake Total 240 / 960 300 / 1260 600 / 600 Output Total 1200 / 2725 675 / 3400 1100 / 1100 Balance -960 / -1765 -375 / -2140 -500 / -500 Weight last 48 hrs Weight 169.507 kg Weight 171.543 kg Weight 172.365 kg Physical Exam Narrative: EXAM NARRATIVE: GEN: Awake, alert and oriented, tachypneic CVS: S1S2 N RS: B/L scattered wheezing+ Abd: Soft, nt/nd , bs+ JIG HAND: 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 Data : 11/04/19 05:53 11/04/19 05:53 A&P Assessment and plan (1) Hypertensive urgency: -Secondary to having run out of his medications several weeks ago, has been unable to afford these -Noted to be in hypertensive urgency with systolic blood pressure greater than 200 -received multiple antihypertensives in ED -Resumed previous oral antihypertensive regimen; titrate as needed for optimal BP control, better controlled now -Hydralazine PRN Status: Acute (2) Chest pain: -Likely related to hypertensive urgency -Troponins noted to be elevated though delta is non-significant -Had previous echo done in 07/28 which was a poor study with ejection fraction likely lower limit of normal - per review of prior records, he had a cardiac cath in late 2015 for similar symptoms of chest pain and repolarization changes on EKG with elevated troponins- non obstructuive CAD noted at the time. Also was noted to have dCHF at the time. -Will order stress test for am as continues to have elevated enzymes and dyspnea this current admission -CTA negative for PE -Recent TSH which was normal, lipid panel wnl, A1c-7.0 -Telemetry monitoring Status: Acute Qualifiers: Chest pain type: unspecified Qualified Code(s): R07.9 - Chest pain, unspecified (3) GERD (gastroesophageal reflux disease): -resume PPI Status: Chronic Qualifiers: Esophagitis presence: esophagitis presence not specified Qualified Code(s): K21.9 - Gastro-esophageal reflux disease without esophagitis (4) Obstructive sleep apnea: -From sleep study from 2017, noted to have severe sleep apnea, and further recommended Bipap titration. - Supect that bulk of his shortness of breath is likely secondary to Untreated SUSANA , which is also contributing to poorly controlled hypertension. May also have underlying undiagnosed COPD -check BNP current admission -Has been unable to afford CPAP/Bipap, not filled medicaid applications in spite of reminders from social secretary, will use CPAP nightly while here. - Will additionally likely need home 02, eval when nearing discharge. Status: Chronic (5) Obesity: -Morbidly obese with a BMI of 58 kg/m2 -Associated poorly controlled hypertension, obstructive sleep apnea Status: Chronic Qualifiers: Body mass index: BMI 50.0-59.9 Obesity classification: adult class 3 (BMI >= 40) Obesity type: due to excess calories Serious obesity comorbidity presence: with serious comorbidity Qualified Code(s): E66.01 - Morbid (severe) obesity due to excess calories; Z68.43 - Body mass index (BMI) 50.0-59.9, adult (6) Hypertension: -As noted above Status: Chronic Qualifiers: Hypertension type: essential hypertension Qualified Code(s): I10 - Essential (primary) hypertension (7) Elevated troponin: -Likely related to hypertensive urgency -Troponins noted to be elevated though delta is non-significant -Serial EKGs -Likely type II secondary to hypertensive urgency Status: Acute Additional A&P Information -new diagnosis of DM type II; A1c-7.0, accuchecks, ISS -cardiac consistent carb diet as tolerated -GI ppx with PPI -DVT ppx with lovenox -Dispo: home; uninsured and has been unable to afford his medications and CPAP, case management consult placed -Code status: FULL code Attestations Medical Necessity Statement*: Continues to c/o subjective dyspnea, stress test in am Coding Level of Care Code Acute Stapler Machine for Chg Fwd Diagnoses Hypertensive urgency I16.0 Chest pain R07.9 Chest pain type: unspecified GERD (gastroesophageal reflux disease) K21.9 Esophagitis presence: esophagitis presence not specified Obstructive sleep apnea G47.33 Obesity E66.01; Z68.43 Body mass index: BMI 50.0-59.9 Obesity classification: adult class 3 (BMI >= 40) Obesity type: due to excess calories Serious obesity comorbidity presence: with serious comorbidity Hypertension I10 Hypertension type: essential hypertension Elevated troponin R79.89
[2019-11-04 16:15] LABS: Glucose Point of Care 136 mg/dL (70-110)
[2019-11-04 20:46] LABS: Glucose Point of Care 129 mg/dL (70-110)
[2019-11-04] MEDS: enoxaparin 40 mg/0.4 mL Syringe SUBCUT (20:48)
[2019-11-05] VITALS (8 sets, daily range): BP systolic 132–178; BP diastolic 65–98; PULSE 70–76; RESP 18–24; TEMP 37.1–37.2; O2SAT 87–96
--- NOTE | 2019-11-05 00:36 | PC.NURSE ---
Patient does not have any complaints at this time. Will monitor.
--- NOTE | 2019-11-05 04:00 | PC.NURSE ---
Patient has no complaints at this time. Will monitor.
[2019-11-05 06:41] LABS: Glucose Point of Care 118 mg/dL (70-110)
--- NOTE | 2019-11-05 06:57 | ECG_ITS ---
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 Interpretive Statements NAME OF STUDY: LEXISCAN SESTAMIBI STRESS TEST INDICATION: Chest Pain PROCEDURE: At the baseline, the blood pressure was 153/110 mmHg, oxygen saturation 90% with a heart rate of 83 bpm. The electrocardiogram showed [normal sinus rhythm, normal axis. ST-T wave changes in lead I, aVL, lead II and aVF, V4 to V6. The Lexiscan was infused over a period of 20 seconds. A total of 0.4 milligrams of Lexiscan was infused. The stress phase was continued for a total of 5 minutes. Heart rate at the end of the stress phase was 81 bpm, oxygen saturation 90% with a blood pressure of 172/115 mmHg. The EKG at the peak infusion revealed sinus rhythm at [address]-T wave changes still persist. Sestamibi was injected 20 seconds after the Lexiscan infusion. Blood pressure at the end of the recovery phase was 178/95 mmHg, oxygen saturation 92% with a heart rate of 78 beats per minute. CONCLUSION: 1. Nondiagnostic EKG with LexiScan infusion given baseline ST-T wave changes. 2. No LexiScan induced chest pain or cardiac arrhythmia. 3. Normal blood pressure and heart rate response. 4. Sestamibi/sestamibi perfusion scan pending; see separate report. Electronically Signed On 11-05-2019 13:45:00 CDT by Joanna Pickett M.D. [id number]
[2019-11-05] MEDS: regadenoson 0.4 Mg/5 ml Syringe IVP (07:52)
--- NOTE | 2019-11-05 07:52 | SUR.PREOP ---
Patient reports no pain or discomfort prior to the start of the procedure.
--- NOTE | 2019-11-05 09:10 | PC.NURSE ---
Patient back to room from stress test. Patient denies SOB or CP. Patient sitting on the side of bed to eat breakfast. No further needs identified at this time. Nurse to continue to monitor.
[2019-11-05] MEDS: FUROsemide 10 mg/mL SDV 2mL 20 MG IVP (09:11)
[2019-11-05] MEDS: potassium chloride ER 10 mEq Tablet 20 MEQ PO (09:12)
[2019-11-05] MEDS: hydroCHLOROthiazide 25 mg Tablet PO (09:12)
[2019-11-05] MEDS: metoprolol tartrate 25 mg Tablet PO (09:13)
[2019-11-05] MEDS: pantoprazole DR 40 mg Tablet PO (09:13)
[2019-11-05] MEDS: lisinopril 20 mg Tablet PO (09:13)
[2019-11-05] MEDS: isosorbide mononitrate ER 30 mg Tablet PO (09:13)
--- NOTE | 2019-11-05 10:00 | PC.NURSE ---
Physician Notification When patient returned from stress test he denied any CP or SOB. SBP was elevated. Morning medications were administered, BP to be reassessed. Patient had 7 beat run of vtach at 0953. Patient reassessed. Patient reports chest pain lasting only during vtach episode. CP had resolved when nurse was assessing patient. BP 128/75. Dr. Villatoro notified of event in person. No new orders received. Nurse to continue to monitor.
--- NOTE | 2019-11-05 10:44 | P.PN_ITS ---
Subjective Subjective: Interval history: 7 beats of V tach on telemetry, c/o chest discomofrt during this time,saturating 91% currently on RA, underwent stress test this am, pending results, received B blockers post the V tach episode. urien output 3.4L. Medications: Reviewed: Yes Medication Review Details: Active Medications Generic Name Dose Route Start Last Admin Trade Name Freq PRN Reason Stop Dose Admin Acetaminophen 650 mg 11/02/19 20:04 11/02/19 21:51 Tylenol PO 650 mg Q6H PRN Administration Mild/Mod Pain Or Temp >/= 101 Calcium Carbonate 500 mg 11/02/19 20:04 Tums PO Q4H PRN INDIGESTION Enoxaparin Sodium 40 mg 11/02/19 20:15 11/02/19 21:23 Lovenox SUBCUT 40 mg Q24H VENUS Administration Furosemide 20 mg 11/02/19 20:15 11/02/19 21:23 Lasix IVP 20 mg Q12H VENUS Administration Hydralazine HCl 10 mg 11/02/19 20:04 Apresoline IVP Q4H PRN elevated BP Hydrochlorothiazid e 25 mg 11/03/19 09:00 Hctz PO DAILY [facility] Isosorbide Mononit rate 30 mg 11/03/19 09:00 Imdur PO DAILY [facility] Lisinopril 10 mg 11/03/19 09:00 Prinivil PO DAILY [facility] Metoprolol Tartrat e 25 mg 11/03/19 09:00 Lopressor PO BID [facility] Morphine Sulfate 2 mg 11/02/19 20:04 Morphine IVP Q4H PRN SEVERE PAIN Ondansetron HCl 4 mg 11/02/19 20:04 Zofran IVP Q8H PRN vomiting, or N/V if npo Pantoprazole Sodiu m 40 mg 11/03/19 09:00 Protonix PO BID [facility] Potassium Chloride 20 meq 11/03/19 09:00 Klor-Con 10 PO DAILY [facility] aspirin Allergy (Verified 10/30/19 16:18) Unknown Vitals/I&O/Wt Last Vital Signs Temp 99.0 F 11/05/19 09:10 Pulse 76 11/05/19 09:10 Resp 18 11/05/19 09:10 BP 172/92 11/05/19 09:10 Pulse Ox 91 11/05/19 09:10 11/04/19 11/05/19 11/05/19 22:59 06:59 14:59 Intake Total 240 / 840 880 / 1720 1240 / 1240 Output Total 1675 / 3375 1125 / 4500 Balance -1435 / -2535 -245 / -2780 1240 / 1240 Weight last 48 hrs Weight 169.507 kg Physical Exam Narrative: EXAM NARRATIVE: GEN: Awake, alert and oriented, no acute distress CVS: S1S2 N RS: CTA B/L Abd: Soft, nt/nd , bs+ 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: 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 Data : 11/04/19 05:53 11/04/19 05:53 A&P Assessment and plan (1) Hypertensive urgency: -Secondary to having run out of his medications several weeks ago, has been unable to afford these -Noted to be in hypertensive urgency with systolic blood pressure greater than 200 -received multiple antihypertensives in ED -Resumed previous oral antihypertensive regimen; titrate as needed for optimal BP control, better controlled now -Hydralazine PRN Status: Acute (2) Chest pain: -Likely related to hypertensive urgency -Troponins noted to be elevated though delta is non-significant -Had previous echo done in 07/28 which was a poor study with ejection fraction likely lower limit of normal - per review of prior records, he had a cardiac cath in late 2015 for similar symptoms of chest pain and repolarization changes on EKG with elevated troponins- non obstructuive CAD noted at the time. Also was noted to have dCHF at the time. -Stress test taken this morning, pending results -CTA negative for PE -Recent TSH which was normal, lipid panel wnl, A1c-7.0 -Telemetry monitoring Status: Acute Qualifiers: Chest pain type: unspecified Qualified Code(s): R07.9 - Chest pain, unspecified (3) GERD (gastroesophageal reflux disease): -on PPI Status: Chronic Qualifiers: Esophagitis presence: esophagitis presence not specified Qualified Code(s): K21.9 - Gastro-esophageal reflux disease without esophagitis (4) Obstructive sleep apnea: -From sleep study from 2017, noted to have severe sleep apnea, and further recommended Bipap titration. - Supect that bulk of his shortness of breath is likely secondary to Untreated SUSANA , which is also contributing to poorly controlled hypertension. May also have underlying undiagnosed COPD -BNP currently better than recent baseline at ~1100 -Has been unable to afford CPAP/Bipap, not filled medicaid applications in spite of reminders from mental health social worker, will use CPAP nightly while here. - home 02 eval when nearing discharge. Status: Chronic (5) Obesity: -Morbidly obese with a BMI of 58 kg/m2 -Associated poorly controlled hypertension, obstructive sleep apnea Status: Chronic Qualifiers: Obesity type: due to excess calories Obesity classification: adult class 3 (BMI >= 40) Serious obesity comorbidity presence: with serious comorbidity Body mass index: BMI 50.0-59.9 Qualified Code(s): E66.01 - Morbid (severe) obesity due to excess calories; Z68.43 - Body mass index (BMI) 50.0- 59.9, adult (6) Hypertension: -As noted above Status: Chronic Qualifiers: Hypertension type: essential hypertension Qualified Code(s): I10 - Essential (primary) hypertension (7) Elevated troponin: -Likely related to hypertensive urgency -Troponins noted to be elevated though delta is non-significant -juliette ste today, results awaited -Serial EKGs -Likely type II secondary to hypertensive urgency Status: Acute Additional A&P Information -new diagnosis of DM type II; A1c-7.0, accuchecks, ISS -cardiac consistent carb diet as tolerated -GI ppx with PPI -DVT ppx with lovenox -Dispo: home; uninsured and has been unable to afford his medications and CPAP, case management consult placed -Code status: FULL code Attestations Medical Necessity Statement*: awaiting stress test results Coding Level of Care Code Acute Transportation Attendant for Chg Fwd Diagnoses Hypertensive urgency I16.0 Chest pain R07.9 Chest pain type: unspecified GERD (gastroesophageal reflux disease) K21.9 Esophagitis presence: esophagitis presence not specified Obstructive sleep apnea G47.33 Obesity E66.01; Z68.43 Obesity type: due to excess calories Obesity classification: adult class 3 (BMI >= 40) Serious obesity comorbidity presence: with serious comorbidity Body mass index: BMI 50.0-59.9 Hypertension I10 Hypertension type: essential hypertension Elevated troponin R79.89
[2019-11-05 11:31] LABS: Glucose Point of Care 168 mg/dL (70-110)
--- NOTE | 2019-11-05 13:14 | NMCV_ITS ---
NM dakota perf SPECT r/s* [id number] Eli Michael Age: 39 Gender: M : 1980 Exam Date: 11/05/2019 13:14 Ordering Phys: Maru Villatoro MD Technologist: GEETA Garcia Exam Location: [facility] [address] Indications: Chest pain, CHF STRESS TEST [facility] IMAGE PROTOCOL Rest/Stress 1 Lexiscan Day Radiopharmaceutical Dose (mCi) Administration Site Administered by Rest: Tc-99m 11.0 IV GEETA Bartlett Sestamibi Stress:Tc-99m 33.0 IV GEETA Bartlett Sestamibi Rest: 05-Nov-2019 60 Discovery 630 Stress: 05-Nov-2019 30 Discovery 630 0.4mg Lexiscan. Supine position only as patient was unable to lay prone. SPECT RESULTS Technical Quality: Good Raw Data Analysis: Soft tissue attenuation, PATIENT WEIGHT: 373 lbs Image Corrections: No attenuation or motion correction applied Summed Stress Score: 3 Summed Rest Score: 2 Summed Difference Score: 1 PERFUSION FINDINGS Small size perfusion abnormality of mild severity of mid anterolateral wall on rest and supine stress images FUNCTIONAL RESULTS (calculated via Gated SPECT) Stress Image LV EF (%): 45 Stress EDV (mL):177 TID: 1.01 Stress ESV (mL):97 FUNCTIONAL FINDINGS: The left ventricle is normal in size. Transient Ischemia Dilatation of 1. There is mildly reduced left ventricular systolic function. The left ventricular ejection fraction is mildly reduced with a value of 45%. There is mild global hypokinesis. Increased end-diastolic and end-systolic volumes. IMPRESSIONS 1. Small sized fixed perfusion abnormality of mild severity of mid anterolateral wall. This is likely suggestive of soft tissue attenuation artifact. 2. The left ventricular ejection fraction is mildly reduced with a value of 45%. 3. There is mild global hypokinesis. 4. No coronary ischemia based on the study. Joanna Pickett MD (Electronically Signed) Final Date: 05 November 2019 13:26 S
--- NOTE | 2019-11-05 16:26 | PM.DCS ---
Discharge Providers Date of Admission: 11/02/19 16:45 Date of Discharge: November 05, 2019 Attending Provider at Admission: Michaela Cid MD Attending Provider at Discharge: Maru Villatoro MD Primary Care Provider: Abigail Manriquez Diagnoses at Discharge Discharge Diagnosis (1) Hypertensive urgency: Status: Acute (2) Chest pain: Status: Acute Qualifiers: Chest pain type: unspecified Qualified Code(s): R07.9 - Chest pain, unspecified (3) GERD (gastroesophageal reflux disease): Status: Chronic Qualifiers: Esophagitis presence: esophagitis presence not specified Qualified Code(s): K21.9 - Gastro-esophageal reflux disease without esophagitis (4) Obstructive sleep apnea: Status: Chronic (5) Obesity: Status: Chronic Qualifiers: Obesity type: due to excess calories Obesity classification: adult class 3 (BMI >= 40) Serious obesity comorbidity presence: with serious comorbidity Body mass index: BMI 50.0-59.9 Qualified Code(s): E66.01 - Morbid (severe) obesity due to excess calories; Z68.43 - Body mass index (BMI) 50.0-59.9, adult (6) Hypertension: Status: Chronic Qualifiers: Hypertension type: essential hypertension Qualified Code(s): I10 - Essential (primary) hypertension (7) Elevated troponin: Status: Acute Problem details: Chronically elevated Reason for Visit Reason for Visit: ACID REFLUX; ELEVATED BP Hospital Course Discharge Summary: please see my progress note from today for details. Interim events include results of stress testing which are negative for inducible ischemia. No further chest pain. Patient on room air since this mornign with 02 sat 96%. Discharge back to [facility] stable condition. 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 Discharge Data Data Completed and Pending: Completed Studies During Hospitalization Category Date Time Status CT angio chest PE protcl [id number] Stat Cat Scan 11/02/19 16:43 Completed Sestamibi Stress Test Request Routi ne Exams 11/05/19 06:57 Completed XR chest 1V iban ble [id number] Stat Exams 11/02/19 14:25 Completed NM dakota perf SPECT r/s* [id number] Routin e Nuc Med 11/05/19 13:14 Completed Pending at discharge Category Date Time Status Sestamibi Stress Test Request Routi ne Exams 11/04/19 13:14 Stop Req Labs from last 24 hours 11/05/19 11/05/19 11/04/19 11:17 06:27 20:33 POC Glucose 168 118 129 Vitals: Last Vital Signs Temp 98.7 F 11/05/19 11:56 Pulse 71 11/05/19 11:56 Resp 24 H 11/05/19 11:56 BP 156/65 11/05/19 11:56 Pulse Ox 96 11/05/19 11:56 Discharge Plan Discharge Patient Disposition: Home Condition: Stable Prescriptions: New lisinopril 20 mg Tablet 20 mg PO DAILY 30 Days Qty: 30 RF: 0 Nitrostat 0.4 mg Tablet, Sublingual 0.4 mg sublingual Q5M PRN (Reason: Chest Pain) 30 Days Qty: 30 RF: 0 hydrochlorothiazide 25 mg Tablet 25 mg PO DAILY 30 Days Qty: 30 RF: 0 metformin 1,000 mg tablet 1,000 mg PO DAILY 30 Days Qty: 30 RF: 0 Continued isosorbide mononitrate 30 mg tablet extended release 24 hr 30 mg PO DAILY 30 Days Qty: 30 RF: 1 metoprolol tartrate 25 mg tablet 25 mg PO BID 30 Days Qty: 60 RF: 1 Protonix 40 mg tablet,delayed release (DR/EC) 40 mg PO DAILY 30 Days Qty: 30 RF: 1 potassium chloride 20 mEq tablet extended release 20 meq PO DAILY 30 Days Qty: 30 RF: 1 Changed furosemide 40 mg tablet 40 mg PO BIDWM 30 Days Qty: 60 RF: 1 Discontinued hydrochlorothiazide 25 mg tablet 25 mg PO DAILY Qty: 30 RF: 1 lisinopril 10 mg tablet 10 mg PO DAILY Qty: 30 RF: 1 Discharge Orders: Discharge Order (Routine); Ordered 11/05/19 Ordered By: Maru Villatoro Referrals: Abigail Manriquez MD [Physician] - 4-7 days (post hospital discharge follow up ) Discharge Diet: Cardiac and Diabetic Discharge Activity: Resume usual activity Discharge Attestations Time Spent in Discharge Care*: greater than 30 min Quality Metrics Clinical Quality Measures During this hospital stay, did patient experience: None Coding Level of Care Code Acute Finishing 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
--- NOTE | 2019-11-05 17:00 | PC.NURSE ---
Discharge instructions given per the physician's orders. Patient verbalized understanding and did not have any further questions. Meds delivered to bedside. IV has been removed. Patient does not have any clothes to change into, so patient will wear hospital gown home. No further needs identified at this time.
== END 2019-11-05 17:19 | disposition home or self-care (01) | DRG 305 ==
LOC: ER 15:48 → CSU 17:50
PROVIDERS: Family Medicine; Admitting Provider Family Medicine; PCP Family Medicine; Visit Provider Student in an Organized Health Care Education/Training Program
DX: I16.0 Hypertensive urgency (principal); Z68.43 Body mass index [BMI] 50.0-59.9, adult; R16.0 Hepatomegaly, not elsewhere classified; G47.33 Obstructive sleep apnea (adult) (pediatric); K21.9 Gastro-esophageal reflux disease without esophagitis; E66.01 Morbid (severe) obesity due to excess calories; I10 Essential (primary) hypertension; I25.10 Atherosclerotic heart disease of native coronary artery without angina pectoris; Z87.891 Personal history of nicotine dependence
CPT/HCPCS: 12345; 36415; 36416; 71045; 71275; 78452; 80048; 80053; 80061; 81001; 81003; 82962; 83036; 83880; 84484; 85025; 93005; 93017; 94660; 96372; 96375; 99284; A9500; J0360; J1650; J1815; J1940; J2785; Q9967

== ENCOUNTER 2020-01-24 12:52 | Emergency (ER) | payer SELFPAY ==
[2020-01-24 12:56] VITALS: BP 214/140; PULSE 83; RESP 26; TEMP 37; O2SAT 99
--- NOTE | 2020-01-24 13:34 | XR_ITS ---
WS: [id number] PORTABLE CHEST HISTORY: dyspnea/cough COMPARISON: 11/02/2019 Lungs are clear and well expanded. No pleural effusion or pneumothorax. Cardiac size: Normal. Mediastinum/Aorta: Normal mediastinum. No osseous abnormality seen. XR/XR chest 1V portable [id number] IMPRESSION: Unremarkable portable chest.
--- NOTE | 2020-01-24 13:36 | ED_ITS ---
Documented by User: Josue Gresham DO 01/27/20 06:25 HPI - SOB/Dyspnea General: Chief Complaint: Shortness of Breath/Dyspnea Stated Complaint: SOB/ COUGH/ SWELLING OF LEGS AND ARMS Time Seen by Provider: 01/24/20 12:59 History of Present Illness: HPI Narrative: 39-year-old male presents to the emergency room with complaint of shortness of breath swelling in his legs. He was recently hospitalized at [facility] and was discharged home with Lasix but is not had any of his medications since time of discharge home 2 weeks ago he had increasing shortness of breath increasing swelling of his legs denies any chest pain. MD elicited complaint: shortness of breath and cough Pertinent past history: congestive heart failure Onset (ago): week(s) Timing: constant Severity: moderate Exacerbating factors: lying flat, exertion, movement and coughing Relieving factors: oxygen, rest and upright position Known history of: congestive heart failure Associated symptoms: Reports chest congestion, cough, orthopnea and palpitations; Deny abdominal pain, chest pain, diaphoresis, dizziness, extremity pain, fever(s), hemoptysis, lightheadedness, myalgias, nausea, paresthesias, polydipsia, polyuria, rash, sense of impending doom, syncope or vomiting Treatment prior to arrival: none Review of Systems Const: Denies: fever(s) or diaphoresis ENMT: Denies: throat pain, ear or mastoid pain, nasal discharge or nasal congestion Card: Reports: palpitations and orthopnea; Denies: chest pain, lightheadedness or syncope Resp: Reports: chest congestion; Denies: hemoptysis GI: Denies: abdominal pain, nausea or vomiting : Denies: flank pain, dysuria, urinary frequency or urinary urgency Musc: Denies: extremity pain Skin/Breast: Denies: rash or pruritus Neuro: Denies: dizziness Endo: Denies: polyuria or polydipsia PFSH ED PFSH: Medical History CAD (coronary artery disease) Diastolic dysfunction without heart failure GERD (gastroesophageal reflux disease) Hypertension Obesity Obstructive sleep apnea Surgical History History of cholecystectomy History of coronary angiogram Only mild luminal irregularities found, otherwise normal, October 2015 Family History Other Hypertension Social History Smoking and tobacco status: former smoker Alcohol intake: current Alcohol intake frequency: holidays/special occasions only Household members: family Housing: House Physical Exam Const: COMMON NORMALS: no acute distress GENERAL APPEARANCE: cooperative and comfortable ORIENTATION/CONSCIOUSNESS: Yes awake, Yes oriented to person, Yes oriented to place and Yes oriented to time HENMT: COMMON NORMALS: normocephalic, atraumatic and hearing grossly normal bilaterally HEAD & SCALP: normocephalic and atraumatic Neck/C-Spine: COMMON NORMALS: no JVD Resp: COMMON NORMALS: normal respiratory effort, No retractions, No use of accessory muscles and clear to auscultation bilaterally AUSCULTATION: clear to auscultation bilaterally Cardio: COMMON NORMALS: no JVD, regular rate, regular rhythm and No murmurs present (Cardio) RATE: regular rate RHYTHM: regular rhythm GI: COMMON NORMALS: Soft to palpation and No hepatosplenomegaly present AUSCULTATION: Yes normoactive bowel sounds PALPATION: Yes Soft to palpation, No Tenderness to palpation present (GI), No Guarding due to palpation present (GI) and Yes No hepatosplenomegaly present Extremity: GENERAL: Yes edema (+3 LE edema) Neuro: SENSORIUM/ORIENTATION: Yes oriented to person, Yes oriented to place and Yes oriented to time Skin: NARRATIVE SKIN EXAM: Patient has 1 area of breakdown of skin on the right distal anterior lateral tibia region. There is a small amount of serous drainage from it no sign of infection no evidence of cellulitis or abscess Course Vital Signs: Vital signs: Vital Signs Temperature 98.6 F 01/24/20 12:56 Pulse Rate 94 01/24/20 20:33 Respiratory Rate 16 01/24/20 20:33 Blood Pressure 161/103 01/24/20 20:33 Pulse Oximetry 94 01/24/20 20:33 MDM - SOB/Dyspnea MDM Narrative: Medical decision making narrative: Care turned over to Dr. Jain at change of shift see his notes for final diagnosis and disposition. Anticipate discharge home with medication adjustments. Lab Data: Labs: Lab Results 01/24/20 01/24/2001/23/20 Range/Units 13:25 13:25 13:25 WBC 9.4 (4.0-10.0) 10^3/ uL RBC 4.61 (4.1-5.3) 10^6/u L Hgb 13.8 (11.7-16.6) g/dL Hct 42.0 (42.0-52.0) % MCV 91.1 (80-94) fL MCH 29.9 (28.0-34.0) pg MCHC 32.9 (30.0-36.0) g/dL RDW 13.8 (12.1-15.1) % Plt Count 261 (130-400) 10^3/c mm MPV 12.0 H (7.4-10.4) fL Neut % (Auto) 70.5 % Lymph % (Auto) 16.5 % Buchanan % (Auto) 8.5 % Eos % (Auto) 3.8 % Baso % (Auto) 0.4 % Neut # (Auto) 6.62 (1.8-7.7) 10^3/u L Lymph # (Auto) 1.6 (0.8-4.8) 10^3/u L Buchanan # (Auto) 0.8 (0.2-0.9) 10^3/u L Eos # (Auto) 0.4 (0.0-0.8) 10^3/u L Baso # (Auto) 0.0 (0.0-0.1) 10^3/u L Nucleated RBC % (a uto) 0 % Nucleated RBCs # 0.0 /100WBC D-Dimer 0.84 H (0-0.59) ug/mIFE U Sodium 140 (136-145) mmol/L Potassium 4.0 (3.5-5.1) mmol/L Chloride 101 (98-107) mmol/L Carbon Dioxide 31 H (22-29) mmol/L Anion Gap 12.0 (5-19) BUN 15 (6-20) mg/dL Creatinine 1.5 H (0.7-1.2) mg/dL GFR Calculation 51.6 L (90-130) mL/min Glucose 95 (65-115) mg/dL Calculated Osmolal ity 291 (285-295) mOsm/k g Calcium 9.1 (8.5-10.5) mg/dL Total Bilirubin 0.3 (0.15-1.2) mg/dL AST 21 (0-40) U/L ALT 22 (0-41) U/L Alkaline Phosphata se 59 (40-130) IU/L Creatine Kinase 90 (39-308) U/L Troponin T Baselin e (0-15) ng/L Troponin T 120 Min [place] (0-15) ng/L Delta Troponin T (0-10) ABS# NT-Pro-B Natriuret Pep 1288 H (0-125) pg/mL Total Protein 7.0 (6.6-8.7) g/dL Albumin 4.0 (3.5-5.2) g/dL Globulin 3.0 (1.3-4.6) g/dL 01/24/20 01/24/20 Range/Units 17:31 19:50 WBC (4.0-10.0) 10^3/ uL RBC (4.1-5.3) 10^6/u L Hgb (11.7-16.6) g/dL Hct (42.0-52.0) % MCV (80-94) fL MCH (28.0-34.0) pg MCHC (30.0-36.0) g/dL RDW (12.1-15.1) % Plt Count (130-400) 10^3/c mm MPV (7.4-10.4) fL Neut % (Auto) % Lymph % (Auto) % Buchanan % (Auto) % Eos % (Auto) % Baso % (Auto) % Neut # (Auto) (1.8-7.7) 10^3/u L Lymph # (Auto) (0.8-4.8) 10^3/u L Buchanan # (Auto) (0.2-0.9) 10^3/u L Eos # (Auto) (0.0-0.8) 10^3/u L Baso # (Auto) (0.0-0.1) 10^3/u L Nucleated RBC % (a uto) % Nucleated RBCs # /100WBC D-Dimer (0-0.59) ug/mIFE U Sodium (136-145) mmol/L Potassium (3.5-5.1) mmol/L Chloride (98-107) mmol/L Carbon Dioxide (22-29) mmol/L Anion Gap (5-19) BUN (6-20) mg/dL Creatinine (0.7-1.2) mg/dL GFR Calculation (90-130) mL/min Glucose (65-115) mg/dL Calculated Osmolal ity (285-295) mOsm/k g Calcium (8.5-10.5) mg/dL Total Bilirubin (0.15-1.2) mg/dL AST (0-40) U/L ALT (0-41) U/L Alkaline Phosphata se (40-130) IU/L Creatine Kinase (39-308) U/L Troponin T Baselin e 46 H (0-15) ng/L Troponin T 120 Min [place] 45.98 H (0-15) ng/L Delta Troponin T -0.02 L (0-10) ABS# NT-Pro-B Natriuret Pep (0-125) pg/mL Total Protein (6.6-8.7) g/dL Albumin (3.5-5.2) g/dL Globulin (1.3-4.6) g/dL Discharge Plan Discharge Patient Disposition: Home Clinical Impression: Hypertensive urgency, Lower extremity edema, Diastolic dysfunction without heart failure Condition: Stable Prescriptions: New doxycycline hyclate 100 mg capsule 100 mg PO BID 10 Days Qty: 20 RF: 0 Continued furosemide 40 mg tablet 40 mg PO BIDWM 30 Days Qty: 60 RF: 1 isosorbide mononitrate 30 mg tablet extended release 24 hr 30 mg PO DAILY 30 Days Qty: 30 RF: 1 Protonix 40 mg tablet,delayed release (DR/EC) 40 mg PO DAILY 30 Days Qty: 30 RF: 1 metoprolol tartrate 25 mg tablet 25 mg PO BID 30 Days Qty: 60 RF: 1 potassium chloride 20 mEq tablet extended release 20 meq PO DAILY 30 Days Qty: 30 RF: 1 Discharge Orders: Discharge Order (Routine); Ordered 01/24/20 Ordered By: Osei Jain Discharge Diet: Advance as tolerated Discharge Activity: Increase activity as tolerated Patient Instructions: Heart Failure (ED), Chronic Hypertension (ED), Leg Edema (ED) Activity Restrictions/Additional Instructions: Return for worsening shortness of breath or swelling despite treatment. Fill your prescriptions at [place] [facility] [place] [facility] in the morning. They are open till noon. If you do so, you will likely get them for significantly reduced cost, and they can be tagged on to your hospital bill. Discharge Date/Time: 01/24/20 20:34 Coding Level of Care Code ED Air Analyst for Chg Fwd Exam Comprehensive Documented by User: Osei Jain DO 01/25/20 00:52 HPI - SOB/Dyspnea General: Chief Complaint: Shortness of Breath/Dyspnea Stated Complaint: SOB/ COUGH/ SWELLING OF LEGS AND ARMS Time Seen by Provider: 01/24/20 12:59 PFSH ED PFSH: Medical History CAD (coronary artery disease) Diastolic dysfunction without heart failure GERD (gastroesophageal reflux disease) Hypertension Obesity Obstructive sleep apnea Surgical History History of cholecystectomy History of coronary angiogram Only mild luminal irregularities found, otherwise normal, October 2015 Family History Other Hypertension Social History Smoking and tobacco status: former smoker Alcohol intake: current Alcohol intake frequency: holidays/special occasions only Household members: family Housing: House Course Vital Signs: Vital signs: Vital Signs Temperature 98.6 F 01/24/20 12:56 Pulse Rate 94 01/24/20 20:33 Respiratory Rate 16 01/24/20 20:33 Blood Pressure 161/103 01/24/20 20:33 Pulse Oximetry 94 01/24/20 20:33 MDM - SOB/Dyspnea MDM Narrative: Medical decision making narrative: 39-year-old male checked out to me by Dr. Gresham. He presents with shortness of breath and leg swelling. He has a history of LVH, and diastolic dysfunction with uncontrolled hypertension. He has been out of his medicine since he was discharged from the hospital a month ago. He states that he can afford his medication he has been diuresed here. He is put out over 2 L. He is feeling better. His legs are cellulitic. He will be discharged with his prescriptions of furosemide isosorbide metoprolol and potassium. He can get them at the pharmacy for free tomorrow. Lab Data: Labs: Lab Results 01/24/20 01/24/20 01/24/20 Range/Units 13:25 13:25 13:25 WBC 9.4 (4.0-10.0) 10^3/ uL RBC 4.61 (4.1-5.3) 10^6/u L Hgb 13.8 (11.7-16.6) g/dL Hct 42.0 (42.0-52.0) % MCV 91.1 (80-94) fL MCH 29.9 (28.0-34.0) pg MCHC 32.9 (30.0-36.0) g/dL RDW 13.8 (12.1-15.1) % Plt Count 261 (130-400) 10^3/c mm MPV 12.0 H (7.4-10.4) fL Neut % (Auto) 70.5 % Lymph % (Auto) 16.5 % Buchanan % (Auto) 8.5 % Eos % (Auto) 3.8 % Baso % (Auto) 0.4 % Neut # (Auto) 6.62 (1.8-7.7) 10^3/u L Lymph # (Auto) 1.6 (0.8-4.8) 10^3/u L Buchanan # (Auto) 0.8 (0.2-0.9) 10^3/u L Eos # (Auto) 0.4 (0.0-0.8) 10^3/u L Baso # (Auto) 0.0 (0.0-0.1) 10^3/u L Nucleated RBC % (a uto) 0 % Nucleated RBCs # 0.0 /100WBC D-Dimer 0.84 H (0-0.59) ug/mIFE U Sodium 140 (136-145) mmol/L Potassium 4.0 (3.5-5.1) mmol/L Chloride 101 (98-107) mmol/L Carbon Dioxide 31 H (22-29) mmol/L Anion Gap 12.0 (5-19) BUN 15 (6-20) mg/dL Creatinine 1.5 H (0.7-1.2) mg/dL GFR Calculation 51.6 L (90-130) mL/min Glucose 95 (65-115) mg/dL Calculated Osmolal ity 291 (285-295) mOsm/k g Calcium 9.1 (8.5-10.5) mg/dL Total Bilirubin 0.3 (0.15-1.2) mg/dL AST 21 (0-40) U/L ALT 22 (0-41) U/L Alkaline Phosphata se 59 (40-130) IU/L Creatine Kinase 90 (39-308) U/L Troponin T Baselin e (0-15) ng/L Troponin T 120 Min [place] (0-15) ng/L Delta Troponin T (0-10) ABS# NT-Pro-B Natriuret Pep 1288 H (0-125) pg/mL Total Protein 7.0 (6.6-8.7) g/dL Albumin 4.0 (3.5-5.2) g/dL Globulin 3.0 (1.3-4.6) g/dL 01/24/20 01/24/20 Range/Units 17:31 19:50 WBC (4.0-10.0) 10^3/ uL RBC (4.1-5.3) 10^6/u L Hgb (11.7-16.6) g/dL Hct (42.0-52.0) % MCV (80-94) fL MCH (28.0-34.0) pg MCHC (30.0-36.0) g/dL RDW (12.1-15.1) % Plt Count (130-400) 10^3/c mm MPV (7.4-10.4) fL Neut % (Auto) % Lymph % (Auto) % Buchanan % (Auto) % Eos % (Auto) % Baso % (Auto) % Neut # (Auto) (1.8-7.7) 10^3/u L Lymph # (Auto) (0.8-4.8) 10^3/u L Buchanan # (Auto) (0.2-0.9) 10^3/u L Eos # (Auto) (0.0-0.8) 10^3/u L Baso # (Auto) (0.0-0.1) 10^3/u L Nucleated RBC % (a uto) % Nucleated RBCs # /100WBC D-Dimer (0-0.59) ug/mIFE U Sodium (136-145) mmol/L Potassium (3.5-5.1) mmol/L Chloride (98-107) mmol/L Carbon Dioxide (22-29) mmol/L Anion Gap (5-19) BUN (6-20) mg/dL Creatinine (0.7-1.2) mg/dL GFR Calculation (90-130) mL/min Glucose (65-115) mg/dL Calculated Osmolal ity (285-295) mOsm/k g Calcium (8.5-10.5) mg/dL Total Bilirubin (0.15-1.2) mg/dL AST (0-40) U/L ALT (0-41) U/L Alkaline Phosphata se (40-130) IU/L Creatine Kinase (39-308) U/L Troponin T Baselin e 46 H (0-15) ng/L Troponin T 120 Min [place] 45.98 H (0-15) ng/L Delta Troponin T -0.02 L (0-10) ABS# NT-Pro-B Natriuret Pep (0-125) pg/mL Total Protein (6.6-8.7) g/dL Albumin (3.5-5.2) g/dL Globulin (1.3-4.6) g/dL Discharge Plan Discharge Patient Disposition: Home Clinical Impression: Hypertensive urgency, Lower extremity edema, Diastolic dysfunction without heart failure Condition: Stable Prescriptions: New doxycycline hyclate 100 mg capsule 100 mg PO BID 10 Days Qty: 20 RF: 0 Continued furosemide 40 mg tablet 40 mg PO BIDWM 30 Days Qty: 60 RF: 1 isosorbide mononitrate 30 mg tablet extended release 24 hr 30 mg PO DAILY 30 Days Qty: 30 RF: 1 Protonix 40 mg tablet,delayed release (DR/EC) 40 mg PO DAILY 30 Days Qty: 30 RF: 1 metoprolol tartrate 25 mg tablet 25 mg PO BID 30 Days Qty: 60 RF: 1 potassium chloride 20 mEq tablet extended release 20 meq PO DAILY 30 Days Qty: 30 RF: 1 Discharge Orders: Discharge Order (Routine); Ordered 01/24/20 Ordered By: Osei Jain Discharge Diet: Advance as tolerated Discharge Activity: Increase activity as tolerated Patient Instructions: Heart Failure (ED), Chronic Hypertension (ED), Leg Edema (ED) Activity Restrictions/Additional Instructions: Return for worsening shortness of breath or swelling despite treatment. Fill your prescriptions at [place] [facility] in the morning. They are open till noon. If you do so, you will likely get them for significantly reduced cost, and they can be tagged on to your hospital bill. Discharge Date/Time: 01/24/20 20:34 Coding Level of Care Code ED Air Analyst for Roxanna Fwd Exam Comprehensive
[2020-01-24 13:48] LABS: Basophils % 0.4 %; Eosinophils # 0.4 10^3/uL (0.0-0.8); Eosinophils % 3.8 %; Hemoglobin 13.8 g/dL (11.7-16.6); Lymphocytes # 1.6 10^3/uL (0.8-4.8); Lymphocytes % 16.5 %; Mean Corpuscular HGB Conc 32.9 g/dL (30.0-36.0); Mean Corpuscular Hemoglobin 29.9 pg (28.0-34.0); Mean Corpuscular Volume 91.1 fL (80-94); Monocytes # 0.8 10^3/uL (0.2-0.9); Monocytes % 8.5 %; Neutrophils # 6.62 10^3/uL (1.8-7.7); Neutrophils % 70.5 %; Nucleated Red Blood Cells % 0 %; Platelet Count 261 10^3/cmm (130-400); Red Blood Count 4.61 10^6/uL (4.1-5.3); Red Cell Distribution Width 13.8 % (12.1-15.1); White Blood Count 9.4 10^3/uL (4.0-10.0)
[2020-01-24 14:12] VITALS: BP 201/112; PULSE 78; RESP 26; O2SAT 95
[2020-01-24 14:17] LABS: Alanine Aminotransferase 22 U/L (0-41); Alkaline Phosphatase 59 IU/L (40-130); Aspartate Amino Transferase 21 U/L (0-40); Blood Urea Nitrogen 15 mg/dL (6-20); Calcium 9.1 mg/dL (8.5-10.5); Chloride 101 mmol/L (98-107); Creatine Phosphokinase 90 U/L (39-308); Glucose 95 mg/dL (65-115); Osmolality Calculated 291 mOsm/kg (285-295); Sodium 140 mmol/L (136-145); Total Bilirubin 0.3 mg/dL (0.15-1.2)
[2020-01-24 14:30] LABS: Carbon Dioxide 31 mmol/L (22-29); Glomerular Filtration Rate 51.6 mL/min (90-130); NT Pro B Type Natriuretic Pept 1288 pg/mL (0-125)
[2020-01-24] MEDS: metoprolol succinate ER (24 HR) 25 mg Tablet 12.5 MG PO (15:17)
[2020-01-24] MEDS: lisinopril 20 mg Tablet PO (15:17)
[2020-01-24] MEDS: hyDRALAzine 20 mg/mL INJ 1 mL 10 MG IVP (15:17)
[2020-01-24] MEDS: FUROsemide 10 mg/mL SDV 10mL 60 MG IVP (15:18)
[2020-01-24 15:33] VITALS: BP 180/122; PULSE 110; RESP 22; O2SAT 95
[2020-01-24 16:00] VITALS: BP 181/110; PULSE 89; RESP 28; O2SAT 93
--- NOTE | 2020-01-24 16:19 | ECG_ITS ---
Test Date: 2020-01-24 Pat Name: Eli Michael Department: Room: Gender: Male Pressurizer: : 1980 Requested By: Josue Chowdhury Order Number: [id number] Smooth MD: Joanna Pickett M.D. Measurements Intervals [place] Rate: 81 P: 44 VA: 148 QRS: 34 QRSD: 93 T: 216 QT: 415 QTc: 483 Interpretive Statements SINUS RHYTHM SEPTAL MYOCARDIAL INFARCTION , PROBABLY OLD [40+ ms Q WAVE IN V1/V2] MODERATE T-WAVE ABNORMALITY, CONSIDER ANTEROLATERAL ISCHEMIA [-0.1+ mV T WAVE IN V3-V6] MODERATE T-WAVE ABNORMALITY, CONSIDER INFERIOR ISCHEMIA [-0.1+ mV T WAVE IN II/aVF] Compared to ECG 11/02/2019 18:19:46 Myocardial infarct finding now present T-wave abnormality still present Possible ischemia still present Electronically Signed On 01-24-2020 17:51:31 CDT by Joanna Pickett M.D. [id number]
[2020-01-24] MEDS: isosorbide dinitrate 20 mg Tablet PO (16:49)
[2020-01-24 16:50] VITALS: BP 147/100; PULSE 101; RESP 22; O2SAT 97
[2020-01-24 18:11] LABS: Troponin(5th) Baseline 46 ng/L (0-15)
[2020-01-24 18:14] LABS: D Dimer 0.84 ug/mIFEU (0-0.59)
--- NOTE | 2020-01-24 18:19 | ECG_ITS ---
[facility] Test Date: 2020-01-24 Pat Name: Eli Michael Department: Room: Gender: Male Mat Repairer: : 1980 Requested By: Josue Chowdhury Order Number: [id number] Smooth MD: Joanna Pickett M.D. Measurements Intervals [place] Rate: 93 P: 40 SC: 176 QRS: 32 QRSD: 80 T: 197 QT: 377 QTc: 470 Interpretive Statements SINUS RHYTHM ST DEVIATION AND MODERATE T-WAVE ABNORMALITY, CONSIDER ANTEROLATERAL ISCHEMIA [-0.1+ mV T WAVE IN V3-V6] ST DEVIATION AND MODERATE T-WAVE ABNORMALITY, CONSIDER INFERIOR ISCHEMIA [-0.1+ mV T WAVE IN II/aVF] Compared to ECG 01/24/2020 13:41:57 Myocardial infarct finding no longer present T-wave abnormality still present Possible ischemia still present Electronically Signed On 01-24-2020 23:37:58 CDT by Joanna Pickett M.D. [id number]
--- NOTE | 2020-01-24 18:31 | CTR_ITS ---
PROCEDURE INFORMATION: Exam: CT Angiography Chest With Contrast Exam date and time: 01/24/2020 6:37 PM Age: 39 years old Clinical indication: Chest pain; Type not specified; Patient HX: SOB; Ble edema worsening SOB, elevated d-dimer TECHNIQUE: Imaging protocol: Computed tomographic angiography of the chest with intravenous contrast. 3D rendering (Not supervised by radiologist): MIP and/or 3D reconstructed images were created by the technologist. Radiation optimization: All CT scans at this facility use at least one of these dose optimization techniques: automated exposure control; mA and/or kV adjustment per patient size (includes targeted exams where dose is matched to clinical indication); or iterative reconstruction. Contrast material: VISIPAQUE 320; Contrast volume: 95 ml; Contrast route: INTRAVENOUS (IV); COMPARISON: CT angio chest PE protcl [id number] 11/02/2019 5:21 PM RADIATION DOSE METRICS: Total DLP (mGy-cm): 653.9 FINDINGS: Pulmonary arteries: No filling defects in the pulmonary arteries to suggest pulmonary embolism. Aorta: No evidence for aortic aneurysm or aortic dissection. Lungs: Tracheobronchial structures are patent. Lungs are clear bilaterally. Calcified granulomas in the left lower lobe are stable. Pleural space: No pneumothorax. No pleural effusion. Heart: Stable mild enlargement of the heart. Diffuse, symmetric thickening of the left ventricular myocardium is stable. Mediastinal space: The esophagus is unremarkable. No mediastinal hematoma. No pneumomediastinum. Lymph nodes: No lymphadenopathy. Liver: The visualized liver is unremarkable. Gallbladder and bile ducts: Stable findings consistent with a previous cholecystectomy. No biliary ductal dilatation. Pancreas: The visualized pancreas is unremarkable. No pancreatic ductal dilatation. Spleen: The spleen is unremarkable. Adrenals: The right and left adrenal glands are unremarkable. Kidneys and ureters: The visualized right kidney is unremarkable. Areas of scarring in the visualized left kidney are stable. Stable simple cyst in the visualized left kidney measuring 5.0 cm. Bones/joints: [id number] multilevel degenerative changes in the visualized spine. Soft tissues: No acute abnormality in the extrathoracic soft tissues. CT/CT angio chest PE protcl [id number] IMPRESSION: 1. No evidence for pulmonary embolism. 2. No acute cardiopulmonary process. 3. Stable mild cardiomegaly. Stable findings suggesting left ventricular hypertrophy. Recommend clinical correlation. 4. Incidental/nonacute findings are listed in the report. Radiation Dose CTDIVOL = (mGy): DLP = 653.9 (mGy-cm)
[2020-01-24] MEDS: iodixanol 320 mg/mL 100mL Btl IV (19:02)
[2020-01-24 20:27] LABS: Troponin 5 2HR 45.98 ng/L (0-15)
[2020-01-24 20:28] LABS: Troponin 5 2HR Delta -0.02 ABS# (0-10)
[2020-01-24 20:33] VITALS: BP 161/103; PULSE 94; RESP 16; O2SAT 94
--- NOTE | 2020-01-24 22:19 | ECG_ITS ---
[facility] Test Date: 2020-01-24 Pat Name: Eli Michael Department: Room: Gender: Male Spray Crew: : 1980 Requested By: Josue Chowdhury Order Number: [id number] Smooth MD: Joanna Pickett M.D. Measurements Intervals [place] Rate: 98 P: 41 MD: 159 QRS: 33 QRSD: 88 T: 208 QT: 373 QTc: 476 Interpretive Statements SINUS RHYTHM SEPTAL MYOCARDIAL INFARCTION , OF INDETERMINATE AGE [40+ ms Q WAVE IN V1/V2] MODERATE T-WAVE ABNORMALITY, CONSIDER ANTEROLATERAL ISCHEMIA [-0.1+ mV T WAVE IN V3-V6] MODERATE T-WAVE ABNORMALITY, CONSIDER INFERIOR ISCHEMIA [-0.1+ mV T WAVE IN II/aVF] Compared to ECG 01/24/2020 13:41:57 No significant changes Electronically Signed On 01-24-2020 23:39:29 CDT by Joanna Pickett M.D. [id number]
== END 2020-01-24 20:34 | disposition home or self-care (01) ==
PROVIDERS: Family Medicine; Emergency Provider Emergency Medicine
DX: I16.0 Hypertensive urgency (principal); R60.0 Localized edema; I11.9 Hypertensive heart disease without heart failure; I25.10 Atherosclerotic heart disease of native coronary artery without angina pectoris; Z87.891 Personal history of nicotine dependence
CPT/HCPCS: 12345; 36415; 71045; 71275; 80053; 82550; 83880; 84484; 85025; 85378; 93005; 96374; 96375; 99283; 99284; J0360; J1940; Q9967

== ENCOUNTER → 2020-05-14 13:01 | Outpatient (BNVA) | payer SELFPAY | PROVIDERS: Visit Provider Emergency Medicine | DX: I10 Essential (primary) hypertension (principal); R42 Dizziness and giddiness; I51.9 Heart disease, unspecified; R60.0 Localized edema | CPT/HCPCS: 85025 ==

== ENCOUNTER 2020-12-02 19:28 | Emergency (ER) | payer SELFPAY ==
[2020-12-02 20:21] VITALS: BP 167/100; PULSE 82; RESP 18; TEMP 36.9; O2SAT 94; BMI 53.1
--- NOTE | 2020-12-02 23:27 | ED_ITS ---
HPI - Back Pain/Injury General: Chief Complaint: Back Pain/Injury Stated Complaint: BACK PAIN Time Seen by Provider: 12/02/20 23:27 History of Present Illness: HPI Narrative: 40-year-old male comes in with complaints of right mid back pain. Patient reports that about 4 days ago he woke up with low back pain. Patient states over the last 4 days he has had increasing back discomfort that he is unable to get control of with [id number] Tylenol. Patient appears well. Patient appears no acute distress. Patient has a history of obesity, hypertension, and heart failure. Review of Systems General: Reports: 10 or more systems reviewed and unremarkable except in HPI and below Musc: Reports: back pain PFS ED PFSH: Medical History (Updated 12/02/20 @ 23:35 by FATMATA Hoffman) CAD (coronary artery disease) Diastolic dysfunction without heart failure GERD (gastroesophageal reflux disease) Hypertension Obesity Obstructive sleep apnea Orthostatic dizziness Peripheral edema Surgical History History of cholecystectomy History of coronary angiogram Only mild luminal irregularities found, otherwise normal, October 2015 Family History Other Hypertension Social History Smoking and tobacco status: former smoker Alcohol intake: current Alcohol intake frequency: holidays/special occasions only Household members: family Housing: House Physical Exam Const: COMMON NORMALS: no acute distress and patient oriented x3 GENERAL APPEARANCE: cooperative HENMT: COMMON NORMALS: normocephalic and Normal external nose present HEAD & SCALP: normal to inspection and normocephalic NOSE: Normal external nose present Eye: GENERAL EYE: appearance normal, both eyes and all related structures Neck/C-Spine: COMMON NORMALS: full ROM Chest: COMMONS NORMALS: normal inspection of the chest Resp: COMMON NORMALS: normal respiratory effort EFFORT & INSPECTION: Yes able to speak in complete sentences Cardio: COMMON NORMALS: regular rate and regular rhythm RATE: regular rate RHYTHM: regular rhythm GI: COMMON NORMALS: non-tender : COMMON NORMALS: Yes no CVA tenderness BLADDER/KIDNEY EXAM: Yes no CVA tenderness Back/Pelvis: COMMON NORMALS: no CVA tenderness LUMBAR SPINE/LOWER BACK: Yes paraspinal muscle tenderness Lumbar paraspinal muscle tenderness: bilateral and Yes paraspinal muscle spasm Lumbar paraspinal muscle spasm: right Extremity: COMMON NORMALS: normal to inspection Neuro: COMMON NORMALS: patient oriented x3 and moves all extremities Psych: COMMON NORMALS: mental status grossly normal and cooperative Skin: COMMON NORMALS: no rashes or lesions noted GENERAL SKIN EXAM: no rashes or lesions noted Course Vital Signs: Vital signs: Vital Signs Temperature 98.5 F 12/02/20 20:21 Pulse Rate 82 12/02/20 20:21 Respiratory Rate 18 12/02/20 20:21 Blood Pressure 167/100 12/02/20 20:21 Pulse Oximetry 94 12/02/20 20:21 MDM - Back Pain/Injury MDM Narrative: Medical decision making narrative: Patient comes in today with mid to low back pain. On exam patient has muscle spasm in the right low back with tightness and tenderness bilaterally to upper lumbar paraspinous muscles. No CVA tenderness is noted. Vital signs are normal except for some mild elevation in blood pressure. Differential diagnosis includes but not limited to muscle strain, muscle spasm, intervertebral disc disease, facet arthropathy, cauda equina syndrome. No sign or sign of severe illness or injury is noted. Patient reported no falls or other injuries. Feel the patient probably has muscle strain that is now spasming causing him more intense pain. Patient was given a shot of orphenadrine 60 mg and 1 hydrocodone 7-1/2-325 mg of acetaminophen. Patient be continued on some hydrocodone with acetaminophen 5- 325 mg. And also some tizanidine 4 mg. Recommended activity as tolerated and follow-up with primary care or return to the ER for worsening symptoms. Patient reported understanding and agreed to plan. Discharge Plan Discharge Patient Disposition: Home Clinical Impression: Back muscle spasm Low back pain Qualifiers: Chronicity: acute Back pain laterality: right Sciatica presence: without sciatica Qualified Code(s): M54.5 - Low back pain Condition: Stable Prescriptions: New hydrocodone-acetaminophen 5-325 mg tablet 1 tab PO Q6H PRN (Reason: pain) Qty: 14 RF: 0 tizanidine 4 mg tablet 4 mg PO Q8H PRN (Reason: muscle spasticity) Qty: 15 RF: 0 No Action potassium chloride 20 mEq tablet extended release 20 meq PO DAILY 7 Days Qty: 7 RF: 0 isosorbide mononitrate 30 mg tablet extended release 24 hr 30 mg PO DAILY 30 Days Qty: 30 RF: 1 potassium chloride 20 mEq tablet extended release 20 meq PO DAILY 30 Days Qty: 30 RF: 1 torsemide 10 mg tablet 20 mg PO DAILY Qty: 60 RF: 0 metoprolol tartrate 25 mg tablet 25 mg PO BID 30 Days Qty: 60 RF: 0 Protonix 40 mg tablet,delayed release (DR/EC) 40 mg PO DAILY 30 Days Qty: 30 RF: 0 Discharge Orders: Discharge ED (Routine); Ordered 12/02/20 Ordered By: Federico Malone Discharge Diet: Usual diet Discharge Activity: Increase activity as tolerated Patient Instructions: Low Back Strain (ED), Opioid Safety Activity Restrictions/Additional Instructions: Activity as tolerated. Gentle stretching and range of motion exercises. Drink plenty of water with medication. Follow-up with primary care for further instruction. Return to the ER for new concerns. Coding Level of Care Code ED Computer Numerical Control Operator for Roxanna Pickett
[2020-12-03] MEDS: HYDROcodone-acetaminophen 7.5-325 mg Tablet 1 TAB PO (00:17)
[2020-12-03] MEDS: orphenadrine 30 mg/mL Inj 2 mL 60 MG IM (00:17)
[2020-12-03 00:20] VITALS: BP 132/84; PULSE 80; RESP 18; TEMP 37.2; O2SAT 94
--- NOTE | 2020-12-03 00:22 | PC.NURSE ---
See [employer] assessments
== END 2020-12-03 00:23 | disposition home or self-care (01) ==
PROVIDERS: Emergency Provider Nurse Practitioner Family
DX: M54.5 Low back pain (principal); M62.830 Muscle spasm of back; I25.10 Atherosclerotic heart disease of native coronary artery without angina pectoris; I11.0 Hypertensive heart disease with heart failure; I50.30 Unspecified diastolic (congestive) heart failure; Z87.891 Personal history of nicotine dependence
CPT/HCPCS: 96372; 99283; J2360

== ENCOUNTER → 2021-01-19 13:33 | Outpatient (BNVA) | payer SELFPAY | PROVIDERS: Visit Provider Family Medicine | DX: I11.9 Hypertensive heart disease without heart failure (principal); E11.9 Type 2 diabetes mellitus without complications | CPT/HCPCS: 80053; 80061; 83036; 85025 ==